=== PATIENT | female | born 1955 | race Hispanic/Latino ===

== ENCOUNTER 2018-10-28 04:15 | Emergency (ER) | payer OTHER, SELFPAY ==
[2018-10-28] MEDS ORDERED: Meclizine HCl 25 MG TAB ONE (05:00)
[2018-10-28 05:12] LABS: #Eosinphils 0.1 thou/uL (0.0-0.7); #Lymphocytes 2.7 thou/uL (1.20-3.40); #Monocytes 0.5 thou/uL (0.11-0.59); #Neutrophils 2.9 thou/uL (1.40-6.50); %Basophils 0.7 % (0.0-1.0); %Lymphocytes 42.8 % (21.0-51.0); %Monocytes 8.3 % (0.0-10.0); %Neutrophils 46.3 % (42.0-75.0); Hemoglobin 12.9 g/dL (12.0-16.0); Mean Corpuscular HGB CONC 34.6 g/dL (32.0-36.0); Mean Corpuscular Hemoglobin 29.7 pg (27.0-31.0); Mean Corpuscular Volume 85.9 fL (78.0-98.0); Mean Platelet Volume 7.5 fL (7.4-10.4); Platelet Count 259 thou/uL (130-400); RBC Distribution Width 11.5 % (11.5-14.5); Red Blood Cell (RBC) Count 4.36 mill/uL (4.20-5.40); White Blood Cell (WBC) Count 6.2 thou/uL (4.8-10.8)
[2018-10-28 05:24] LABS: ALT (SGPT) 19 U/L (8-55); AST (SGOT) 24 U/L (5-34); Alkaline Phosphatase 148 U/L (40-150); Anion Gap 12 mmol/L (10-20); BUN (Urea Nitrogen) 14 mg/dL (9.8-20.1); Bilirubin, Total 0.4 mg/dL (0.2-1.2); Calc. Creatinine Clearance 0 mL/min (70-130); Calcium 9.5 mg/dL (7.8-10.44); Carbon Dioxide 24 mmol/L (23-31); Chloride 107 mmol/L (98-107); Estimated GFR-MDRD 83; Globulin 3.5 g/dL (2.4-3.5); Glucose 110 mg/dL (80-115); Potassium 3.9 mmol/L (3.5-5.1); Protein, Total 7.5 g/dL (6.0-8.3); Sodium 139 mmol/L (136-145)
[2018-10-28] MEDS ORDERED: Diazepam 5 MG TAB ONE (05:54)
--- NOTE | 2018-10-28 08:16 | CT ---
PRELIMINARY REPORT/[facility]/EMERGENTY AFTER-HOURS PROCEDURE CT Head Without Contrast EXAM DATE/TIME: 10/28/2018 5:12 AM CLINICAL HISTORY: 63 years old, female; Signs and symptoms; Dizziness; Patient HX: Patient reports dizziness since yest erday with ear pain and congestion. TECHNIQUE: Axial computed tomography images of the head/brain without contrast. COMPARISON: No relevant prior studies available. FINDINGS: Brain: Normal. No hemorrhage. No significant white matter disease. No edema. Ventricles: Normal. No ventriculomegaly. Bones/joints: Normal. No acute fracture. Sinuses: Normal as visualized. No acute sinusitis. Mastoid air cells: Normal as visualized. No mastoid effusion. Soft tissues: Normal. IMPRESSION: No acute intracranial hemorrhage. Thank you for allowing us to participate in the care of your patient. Dictated and Authenticated by: Akira Yung MD 10/28/2018 6:35 AM Central Time ([place] & [place]) FINAL REPORT CT BRAIN WITHOUT CONTRAST: History: Dizziness. Comparison: CT brain 2004 FINDINGS: Findings and impression are concordant with the preliminary report. Code QA. POS: [facility]
== END 2018-10-28 06:43 | disposition home or self-care (01) ==
LOC: ERS 04:15
DX: H81.20 Vestibular neuronitis, unspecified ear (principal); I10 Essential (primary) hypertension
CPT/HCPCS: 36415; 70450; 80053; 84484; 85025; 93005

== ENCOUNTER 2018-11-25 08:48 | Emergency (ER) | payer OTHER ==
--- NOTE | 2018-11-25 10:52 | RAD ---
PORTABLE CHEST: Date: 11/25/18 HISTORY: Cough. FINDINGS: Heart size and mediastinum within normal limits. Lungs are clear of infiltrates. No bony findings. IMPRESSION: No active intrathoracic disease. POS: [facility]
== END 2018-11-25 10:58 | disposition home or self-care (01) ==
LOC: ERS 08:48
DX: J20.9 Acute bronchitis, unspecified (principal); R09.81 Nasal congestion; I10 Essential (primary) hypertension
CPT/HCPCS: 71045; 87804; 99283

== ENCOUNTER 2019-02-25 11:09 | Emergency (ER) | payer OTHER ==
[2019-02-25 12:02] LABS: Bilirubin Negative (Negative); Blood, Urine Small (Negative); Clarity CLOUDY (Clear); Glucose, Urine (Dipstick) Negative (Negative); Leukocyte Small (Negative); Nitrite Negative (Negative); Protein, Urine (Dipstick) 30 mg/dL (Neg-Trace); Specific Gravity, Urine 1.023 (1.002-1.036); Urobilinogen 0.2 mg/dL (0.2-1.0); pH, Urine 5.5 (5.0-9.0)
[2019-02-25 12:05] LABS: Bacteria/HPF None Seen HPF (None Seen)
== END 2019-02-25 12:26 | disposition home or self-care (01) ==
LOC: ERS 11:09
DX: B35.6 Tinea cruris (principal); N39.0 Urinary tract infection, site not specified; I10 Essential (primary) hypertension
CPT/HCPCS: 81003; 81015; 99283

== ENCOUNTER 2019-11-29 07:10 | Outpatient (CLI) | payer OTHER ==
--- NOTE | 2019-11-29 09:09 | ULT ---
US Abdominal History: Diffuse abdominal pain Comparison: Ultrasound abdomen 2004 Findings: Real-time grayscale and color evaluation of the abdomen was performed. The pancreas and aor ta and IVC are not well seen. There are multiple masses within the liver, largest measuring up to 3.2 cm in size. Some these masses are hyperechoic, and others are hyperechoic. Some these masses are subcapsular with sciatica small capsular bulge. These are not seen on the prior ultrasound from [address] abdomen an d pelvis exam 2013. The bladder is normal. No pericholecystic fluid. No cholelithiasis. Portal vein is patent with antegrade flow. The common bile duct measures up to 6 mm. Right kidney measures 10.5 x 5.4 x 5 cm without mass, hydronephrosis, or abnormal calcifications. The left kidney measures 9.4 x 5.55 4.6 cm without mass, hydronephrosis, or abnormal calcifications. The spleen measures 8.7 cm in length. Impression: Numerous abnormal hepatic masses concerning for metastatic disease. Dedicated liver protocol CT or MRI of the abdomen along with a pelvis examination recommended.
--- NOTE | 2019-11-29 09:56 | ULT ---
US Pelvic Transvag W Doppler History: Pelvic pain Comparison: None. Findings: Real-time grayscale, color, and spectral analysis of the pelvis was performed. Prior hysterectomy. Left ovary is normal without active vascular flow measuring 3.2 x 3.2 x 3.5 cm. 2 .1 cm cyst. There is a very large complex mass in the right ovary which measures up to 8.7 cm in size. There are solid and cystic components as well as papillary projections. There are also abnormal internal calcifications. Impression: Findings highly suspicious for right ovarian malignancy. Gynecologic consultation advised . Code CR: Dr. Hernandez office notified of findings via telephone at 9:54 AM.
--- NOTE | 2019-12-05 13:26 | MMO ---
Bilateral MAMMO Bilat Screen [facility]. CLINICAL HISTORY: Patient is 64 years old and is seen for screening. The patient has no family history of breast cancer. The patient has no personal history of cancer. VIEWS: The views performed were: bilateral craniocaudal with tomosynthesis; bilateral mediolateral oblique with tomosynthesis; and cleavage view. FILMS COMPARED: The present examination has been compared to a prior imaging study performed at [facility] on 09/06/2013. This study has been interpreted with the assistance of computer-aided detection. MAMMOGRAM FINDINGS: There are scattered fibroglandular densities. There are vascular calcifications seen in both breasts. There are no suspicious masses, suspicious calcifications, or new areas of architectural distortion. IMPRESSION: A ROUTINE FOLLOW-UP MAMMOGRAM IN 1 YEAR IS RECOMMENDED. THE RESULTS OF THIS EXAM WERE SENT TO THE PATIENT. ACR BI-RADS Category 2 - Benign finding MAMMOGRAPHY NOTE: 1. A negative mammogram report should not delay a biopsy if a dominant of clinically suspicious mass is present. 2. Approximately 10% to 15% of breast cancers are not detected by mammography. 3. Adenosis and dense breasts may obscure an underlying neoplasm. Reported by: CHARMAINE BELLE MD Electonically Signed: [id number]
== END 2019-11-29 07:11 | disposition home or self-care (01) ==
LOC: ULT 07:10 → BICULT 07:11
PROVIDERS: ATTEND Family Medicine
DX: Z12.31 Encounter for screening mammogram for malignant neoplasm of breast (principal); R10.84 Generalized abdominal pain; R16.0 Hepatomegaly, not elsewhere classified; R10.2 Pelvic and perineal pain
CPT/HCPCS: 76856; 77063; 77067; 93975

== ENCOUNTER 2019-12-09 09:48 | Outpatient (CLI) | payer OTHER ==
--- NOTE | 2019-12-09 13:34 | CT ---
CT Abdomen Pelvis W Con HISTORY: Malignant neoplasm of right ovary. COMPARISON: Pelvic ultrasound of 11/29/[address] examination of 12/31/2013. FINDINGS: The lung bases are clear of any infiltrative process. On the previous CT study small hepatic cyst were identified. There are now multiple liver masses seen in addition to the smaller cysts. The spleen and gallbladder appear unremarkable. The pancreas shows no evidence of ductal dilatation. Beginning along the inferior margin of the uncinate process o f the pancreas is a confluent soft tissue mass which appears to represent lymphadenopathy. It blends with the inferior margin of the uncinate process and fourth portion of the duodenum partially encircling the aorta inferior vena cava and right renal artery. It is difficult to measure but the upper portion of this is approximately 3.8 cm in size. This confluent soft tissue density extends to partially encircle the aorta and impresses on IVC to the level the aortic bifurcation. There is adenopathy within the pelvis with one of the larger nodes being a right common iliac node measuring 1 .5 cm. There is also moderate mesenteric lymphadenopathy. There is soft tissue nodularity seen within the omentum just beneath the anterior abdominal wall with a nodule measuring 12 mm in size. Th ere is also a larger nodule adjacent to this measuring 1.67 cm. Smaller nodes are also present no ascites. CT of pelvis performed with contrast enhancement: A midline complex mass which has cystic components and necrotic components is seen. It measures approximately 10 cm in maximum dimension. Enlarged iliac chain lymph nodes are also seen, these include common and internal iliac chain lymph nodes and external iliac chain nodes. No free fluid. Post hysterectomy changes. IMPRESSION: 1. Large midline pelvic mass possibly of ovarian origin. There is extensive adenopathy to include pel hailee periaortic, mesenteric and even some enlarged omental nodes. No ascites. There is also diffuse liver lesions which are probably related to metastatic disease. This is an unusual presentation for a ovarian malignancy but this would still be a possibility. Other entities such as lymphoma would be other considerations. Biopsy could be performed of one of the liver lesions for assessment.
== END 2019-12-09 09:49 | disposition home or self-care (01) ==
LOC: SCSCT 09:48
PROVIDERS: ATTEND Family Medicine
DX: C56.1 Malignant neoplasm of right ovary (principal); R19.00 Intra-abdominal and pelvic swelling, mass and lump, unspecified site
CPT/HCPCS: 74177; 82565

== ENCOUNTER 2020-02-01 13:56 | Emergency (ER) | payer MEDICARE, OTHER ==
--- NOTE | 2020-02-01 15:37 | RAD ---
FRONTAL AND LATERAL IMAGING RIGHT TIBIA AND FIBULA: 02/01/20 COMPARISON: None. HISTORY: Swelling. FINDINGS: No displaced fracture or evidence of dislocation. No radiopaque foreign body or subcutaneous gas. IMPRESSION: No acute osseous abnormality. POS: [facility]
--- NOTE | 2020-02-01 15:50 | ULT ---
RIGHT LOWER EXTREMITY VENOUS DOPPLER ULTRASOUND: 02/01/20. COMPARISON: None. HISTORY: Edema, pain, swelling, assess for DVT. TECHNIQUE: Multiplanar silverman scale sonographic imaging of the venous structures right lower extremity obtained wi th color flow and spectral analysis. FINDINGS: the common femoral vein is only partially compressible. The profunda femoral vein and the femoral vei n proximally are partially compressible. There is no compression of the mid and distal femoral vein a s well as the popliteal vein. Findings are consistent with extensive deep venous thrombosis of the ri ght lower extremity. Right greater saphenous vein appears patent. Posterior tibial vein is patent as well. IMPRESSION: Extensive deep venous thrombosis of the right lower extremity including right common femoral vein, pr ofunda femoral vein, femoral vein, and popliteal vein. POS: [facility]
== END 2020-02-01 15:53 | disposition home or self-care (01) ==
LOC: ERS 13:56
DX: I82.411 Acute embolism and thrombosis of right femoral vein (principal); I82.431 Acute embolism and thrombosis of right popliteal vein; I10 Essential (primary) hypertension; F32.9 Major depressive disorder, single episode, unspecified; Z85.43 Personal history of malignant neoplasm of ovary; Z79.899 Other long term (current) drug therapy

== ENCOUNTER 2020-02-08 15:33 | Emergency (ER) | payer MEDICARE ==
[2020-02-08 17:21] LABS: Mean Corpuscular HGB CONC 32.2 g/dL (32.0-36.0); Mean Corpuscular Hemoglobin 27.8 pg (27.0-31.0); Mean Corpuscular Volume 86.3 fL (78.0-98.0); Mean Platelet Volume 6.2 fL (7.4-10.4); Platelet Count 516 thou/uL (130-400); RBC Distribution Width 14.1 % (11.5-14.5); Red Blood Cell (RBC) Count 2.87 mill/uL (4.20-5.40)
[2020-02-08 17:27] LABS: INR-International Normal Ratio 1.8; PTT 43.5 SEC (22.9-36.1); Prothrombin Time 20.8 SEC (12.0-14.7)
[2020-02-08 17:35] LABS: Band 19 % (5-11); Lymphocytes 9 % (21-51); MDiff Complete? YES; Metamyelocyte 1 % (0-0); Monocytes 3 % (0-10); Neutrophil 68 % (42-75); Ovalocytes SLIGHT = 2-5 cells (100X) (0-1/hpf); Platelet Morphology Comment Appears Increased; Polychromasia MODERATE = 3-4 cells (100X) (0-2/hpf)
[2020-02-08 17:41] LABS: ALT (SGPT) 14 U/L (8-55); AST (SGOT) 30 U/L (5-34); Albumin 3.6 g/dL (3.4-4.8); Alkaline Phosphatase 277 U/L (40-110); Anion Gap 14 mmol/L (10-20); BUN (Urea Nitrogen) 6 mg/dL (9.8-20.1); Bilirubin, Total 0.2 mg/dL (0.2-1.2); Calc. Creatinine Clearance 0 mL/min (70-130); Calcium 9.6 mg/dL (7.8-10.44); Carbon Dioxide 26 mmol/L (23-31); Chloride 103 mmol/L (98-107); Estimated GFR-MDRD 75; Globulin 3.4 g/dL (2.4-3.5); Glucose 98 mg/dL (80-115); Potassium 5.4 mmol/L (3.5-5.1); Sodium 138 mmol/L (136-145)
--- NOTE | 2020-02-08 17:57 | ULT ---
ULTRASOUND RIGHT LOWER EXTREMITY VENOUS DOPPLER: 02/08/20 HISTORY: Pain. COMPARISON: Right lower extremity venous Doppler, 02/01/20. FINDINGS: Real time silverman scale, color Doppler and spectral analysis of the right lower extremity venous system was performed. A common femoral, femoral, proximal portions of the greater saphenous and deep femoral veins as well as the popliteal and posterior tibial veins were interrogated. There is nearly occlusive thrombus of the right common femoral, femoral, and popliteal veins. There i s some small volume flow within the posterior tibial veins. IMPRESSION: Similar appearance of the extensive deep venous thrombosis right lower extremity. POS: [facility]
== END 2020-02-08 18:55 | disposition home or self-care (01) ==
LOC: ERS 15:33
DX: I82.411 Acute embolism and thrombosis of right femoral vein (principal); I82.431 Acute embolism and thrombosis of right popliteal vein; I10 Essential (primary) hypertension; F32.9 Major depressive disorder, single episode, unspecified; Z79.899 Other long term (current) drug therapy
CPT/HCPCS: 36415; 80053; 85025; 85610; 85730

== ENCOUNTER 2020-04-21 22:13 | Emergency (ER) | payer OTHER | END 2020-04-21 23:48 | disposition home or self-care (01) | LOC: ERS 22:13 | DX: R50.9 Fever, unspecified (principal); R09.81 Nasal congestion; R05 Cough; Z20.828 Contact with and (suspected) exposure to other viral communicable diseases; I10 Essential (primary) hypertension; F32.9 Major depressive disorder, single episode, unspecified | CPT/HCPCS: 99283 ==

== ENCOUNTER 2020-04-24 19:55 | Observation (INO) | payer OTHER ==
[~2020-04-24 19:55] MED LIST: Iopamidol-370 76% 500 ML 1 ML ONE
[2020-04-24] MEDS ORDERED: Ibuprofen 200 MG TAB ONE (20:24)
[2020-04-24 20:32] LABS: #Lymphocytes 0.9 thou/uL (1.20-3.40); #Monocytes 0.2 thou/uL (0.11-0.59); #Neutrophils 9.5 thou/uL (1.40-6.50); %Basophils 0.2 % (0.0-1.0); %Lymphocytes 8.6 % (21.0-51.0); %Monocytes 1.5 % (0.0-10.0); %Neutrophils 89.7 % (42.0-75.0); Hemoglobin 9.7 g/dL (12.0-16.0); Mean Corpuscular HGB CONC 34.8 g/dL (32.0-36.0); Mean Corpuscular Hemoglobin 31.2 pg (27.0-31.0); Mean Corpuscular Volume 89.6 fL (78.0-98.0); Mean Platelet Volume 7.4 fL (7.4-10.4); Platelet Count 187 thou/uL (130-400); RBC Distribution Width 17.6 % (11.5-14.5); Red Blood Cell (RBC) Count 3.09 mill/uL (4.20-5.40); White Blood Cell (WBC) Count 10.5 thou/uL (4.8-10.8)
--- NOTE | 2020-04-24 20:45 | RAD ---
EXAM: CHEST ONE VIEW HISTORY: Fever. Covid positive. Generalized weakness. COMPARISON: 11/25/2018 FINDINGS: A right subclavian Mediport catheter is noted in place with tip overlying the expected location of th e SVC. Cardiac silhouette and pulmonary vasculature are within normal limits. Minimal linear densities are seen in the region of the lingula and left lung base which may represent mild atelectas is and/or scarring. Lungs are otherwise clear without consolidation or pleural fluid. No other interval change. IMPRESSION: Minimal atelectasis versus scarring left lung base. There is otherwise no acute cardiopulmonary proce ss.
[2020-04-24] MEDS ORDERED: Cefepime 2 GM VIAL ONE (20:47)
[2020-04-24 20:51] LABS: ALT (SGPT) 27 U/L (8-55); AST (SGOT) 35 U/L (5-34); Albumin 3.5 g/dL (3.4-4.8); Alkaline Phosphatase 266 U/L (40-110); Anion Gap 15 mmol/L (10-20); BUN (Urea Nitrogen) 12 mg/dL (9.8-20.1); Bilirubin, Total 0.3 mg/dL (0.2-1.2); Calc. Creatinine Clearance 0 mL/min (70-130); Calcium 8.7 mg/dL (7.8-10.44); Carbon Dioxide 22 mmol/L (23-31); Chloride 88 mmol/L (98-107); Estimated GFR-MDRD 60; Globulin 3.4 g/dL (2.4-3.5); Glucose 102 mg/dL (80-115); Potassium 3.4 mmol/L (3.5-5.1); Protein, Total 6.9 g/dL (6.0-8.3); Sodium 122 mmol/L (136-145)
[2020-04-24 22:08] LABS: Bacteria/HPF Rare-Few HPF (None Seen); Bilirubin Negative (Negative); Blood, Urine Negative (Negative); Clarity Clear (Clear); Glucose, Urine (Dipstick) Normal (Negative); Ketone, Urine Negative (Negative); Leukocyte Negative Leu/uL (Negative); Nitrite Negative (Negative); Protein, Urine (Dipstick) 30 mg/dL (Neg-Trace); RBC/HPF 0-3 HPF (0-3); Specific Gravity, Urine 1.015 (1.002-1.036); Urobilinogen Normal mg/dL (Less than 2); pH, Urine 5.5 (5.0-9.0)
[2020-04-24] MEDS ORDERED: Azithromycin 500 MG VIAL ONE (22:20)
--- NOTE | 2020-04-24 22:44 | PDOC.FPRHP ---
- History of Present Illness Chief Complaint: COVID-19 Positive, Worsening SOB History of Present Illness: This is a 64 yo female with a pmh of HTN and ovarian cancer who presents to the ER with a cc of worsening fever, chills, SOB, and body aches. She states that she was seen here on 04/21/20 for fever, symptom onset 04/19/20. At that time she had been tested for COVID-19 but did not have the results back and she was sent home as her condition did not warrant admission at that time. At this time, she has [facility]. She states she was feeling weak and dizzy tonight, prompting her admission. Other symptoms include nasal congestion, cough, and decreased taste as well as PO intake. I discussed her current condition with her daughter who confirmed her medication list and added that she has been eating poorly since her symptoms started. Her son-in-law tested positive for COVID-19 and is her sick contact. Last Chemo treatment ( treatment): April 15 taxol carboplatin, dostarlimab next on May 06 ED Course: Cefepime 2g Azithromycin 500mg IV Ibuprofen 600mg NS 1L - Allergies/Adverse Reactions Allergies Allergy/AdvReac Type Severity Reaction Status Date / Time codeine Allergy Verified 04/24/20 22:58 latex Allergy Verified 04/24/20 22:58 Penicillins Allergy Rash Verified 04/24/20 22:58 - Home Medications Medication Instructions Recorded Confirmed Type Apixaban [Eliquis] 5 mg PO BID 04/24/20 04/24/20 History Ferrous Sulfate 325 mg PO DAILY 04/24/20 04/25/20 History Lisinopril 10 mg PO DAILY 04/24/20 04/24/20 History Loratadine [Claritin] 10 mg PO DAILY 04/24/20 04/24/20 History Sertraline HCl 25 mg PO DAILY 04/24/20 04/24/20 History - History PMHx: HTN, Ovarian cancer, depression PSHx: Bilateral knee replacement, hysterectomy, partial tubal ligation FHx:Non contributory Social: Denies JESSICA - Review of Systems General: reports: fever/chills, weight/appetite/sleep changes, fatigue. denies : night sweats Eyes: denies: eye pain, vision changes ENT: reports: nasal congestion. denies: rhinorrhea Respiratory: reports: cough, shortness of breath, exercise intolerance. denies : congestion Cardiovascular: denies: chest pain, palpitation, edema, paroxysmal nocturnal dyspnea, orthopnea Gastrointestinal: denies: nausea, vomiting, diarrhea, constipation Genitourinary: denies: incontinence, dysuria Skin: denies: rashes, lesions Musculoskeletal: denies: pain, tenderness Neurological: denies: numbness, syncope Psychological: reports: depression. denies: anxiety - Vital signs BP: 124/63 HR: 82 RR: 20 Tmax: 99.7 Pox: 95% on ra Wt: 54 kg - Physical Exam Constitutional: NAD, awake, alert and oriented, well developed HEENT: PERRLA, EOMI, grossly normal vision, grossly normal hearing, MMM Neck: trachea midline, no JVD Heart: pulses present, other (Deferred cardio exam / covid, tele strip appears RRR) Lungs: no respiratory distress (calm respirations), no retractions Abdomen: soft, non-tender, no masses/distention Musculoskeletal: normal structure, normal tone, ROM grossly normal Neurological: CN II-XII intact, normal sensation Skin: good turgor, capillary refill <2 seconds Heme/Lymphatic: no unusual bruising or bleeding Psychiatric: normal mood and affect, good judgment and insight FMR H&P: Results - Labs Result Diagrams: 04/25/20 04:46 04/25/20 04:46 Lab results: WBC 10.5 thou/uL (4.8-10.8) 04/24/20 20:20 Hgb 9.7 g/dL (12.0-16.0) L 04/24/20 20:20 Hct 27.7 % (36.0-47.0) L 04/24/20 20:20 MCV 89.6 fL (78.0-98.0) 04/24/20 20:20 Plt Count 187 thou/uL (130-400) 04/24/20 20:20 Neutrophils % 89.7 % (42.0-75.0) H 04/24/20 20:20 Sodium 122 mmol/L (136-145) L 04/24/20 20:20 Potassium 3.4 mmol/L (3.5-5.1) L 04/24/20 20:20 Chloride 88 mmol/L (98-107) L 04/24/20 20:20 Carbon Dioxide 22 mmol/L (23-31) L 04/24/20 20:20 BUN 12 mg/dL (9.8-20.1) 04/24/20 20:20 Creatinine 0.93 mg/dL (0.6-1.1) 04/24/20 20:20 Glucose 102 mg/dL (80-115) 04/24/20 20:20 Lactic Acid 2.3 mmol/L (0.5-2.2) H 04/24/20 20:38 Calcium 8.7 mg/dL (7.8-10.44) 04/24/20 20:20 Total Bilirubin 0.3 mg/dL (0.2-1.2) 04/24/20 20:20 AST 35 U/L (5-34) H 04/24/20 20:20 ALT 27 U/L (8-55) 04/24/20 20:20 Alkaline Phosphatase 266 U/L (40-110) H 04/24/20 20:20 Serum Total Protein 6.9 g/dL (6.0-8.3) 04/24/20 20:20 Albumin 3.5 g/dL (3.4-4.8) 04/24/20 20:20 Urine Ketones Negative mg/dL (Negative) 04/24/20 21:54 Urine Blood Negative (Negative) 04/24/20 21:54 Urine Nitrite Negative (Negative) 04/24/20 21:54 Ur Leukocyte Esterase Negative Joey/uL (Negative) 04/24/20 21:54 Urine RBC 0-3 HPF (0-3) 04/24/20 21:54 Urine WBC 4-6 HPF (0-3) A 04/24/20 21:54 Ur Squamous Epith Cells 4-6 HPF (0-3) A 04/24/20 21:54 Urine Bacteria Rare-Few HPF (None Seen) 04/24/20 21:54 - Radiology Interpretation CT scan - chest Status: image reviewed by me, report reviewed by me (CTA: 1. Imaging findings most compatible with viral pneumonitis which can be seen with Covid 19. 2[address] CT evidence of pulmonary embolus. 3. Hilar and mediastinal lymphadenopathy which may be reactive in origin. 4. Hepatic metastatic lesions better visualized on prior CT abdomen. 4. Stranding in the aortocaval location incompletely evaluated on this examination. There is prominen t in confluent soft tissue density in the aortocaval region on the prior exam suggesting confluent lymphadenopathy which resulted in mass effect on the IVC and renal veins on the prior exam with possible occlusion of the IVC suggest on the prior exam.) Chest x-ray Status: report reviewed by me (Minimal atelectasis versus scarring left lung base. There is otherwise no acute cardiopulmonary process.) FMR H&P: A/P - Problem List (1) COVID-19 Current Visit: Yes Status: Acute Code(s): U07.1 - COVID-19 - Plan Sepsis 2/2 COVID-19 -Admit to [facility] -S/P Cefepime 2g, Azithromycin 500mg -Pending procal and Baseline Covid labs to direct further abx if needed -Tested positive at the [facility] -Symptom onset 04/19/20 -Repeating COVID test per facility policy Hyponatremia, asymptomatic -Na 122 -Likely hypovolemic hyponatremia -S/P 1 L -Will give another L of NS -Consider urine studies if not improved on AM labs Lactic acidosis -2.3, likely 2/2 above -Pending repeat Hypokalemia -Mild, pending Mag level -Will replace BID x6 doses Hypocloridemia -Pending repeat CMP Normocytic anemia with widened RDW -Likely 2/2 chemotherapy HTN -Continue home lisinopril Depression -Continue home sertraline 25mg Ovarian cancer, currently undergoing chemotherapy -Dr. Guevara is oncologist -Takes Eliquis 5mg BID for anticoagulation given hypercoagulabilty Code: Full Prophylaxis: Home Eliquis Family: Discussed case with Pt's Daughter Fluids: NS at 90ml/hr x1L Diet: Regular with Mighty shakes TID Disposition: DC in 1-2 days PCP: Dr. Hernandez Addendum - Attending - Attending Attestation Date/Time: 04/25/20 1214 I personally evaluated the patient and discussed the management with Dr. Muro I agree with the History, Examination, Assessment and Plan documented above with any addition or exceptions noted below. 64 yo female under treatment for metastatic ovarian CA. Patient with hypercoagulable state hx of DVT Left LE and on eliquis. Patient admitted throught ER with hypovolemic hyponatremia and found to be COVID 19 positive. CTA chest no PE c/w of viral pneumonitis. Patient currently sating well on Room air without oxygen requirement. She has immunocompromised state and empirically started on Antibiotic. Replace volume with NS and serial labs no current indication for remdesivir, further recommendation pending observation.
--- NOTE | 2020-04-24 23:18 | CT ---
CT ANGIOGRAM THORAX WITH IV CONTRAST AND 3-D RECONSTRUCTIONS CLINICAL INDICATION: Cough, congestion, and fever. Positive Covid COMPARISON: None FINDINGS: Pulmonary arteries: No filling defects are seen in the pulmonary arteries to suggest a pulmonary embo leonid. Aorta: Minimal vascular calcifications are seen. Thoracic aorta is normal in caliber without evidence of an aortic dissection. Lungs: There are scattered patchy groundglass density seen throughout the lungs more prominent periph erally and at each lung base with imaging characteristics most compatible with viral pneumonitis. No pleural effusion is seen Mediastinum: There is soft tissue density seen in each hilar region with mildly prominent subcarinal lymph node present suggesting lymphadenopathy likely reactive in origin. Thyroid gland: Grossly normal in appearance where visualized. Osseous structures: No acute process. Chest wall: Right subclavian Mediport catheter is noted in place with tip terminating in the distal S VC Upper abdomen: Multiple hypodense lesions are seen throughout the liver also seen on CT abdomen on compatible with metastatic disease. There is stranding seen in aortocaval region, and the patient was noted to have soft tissue density in the aortocaval location on the prior study which did result in mass effect on the IVC and possibly occlude the IVC on prior CT abdomen. IMPRESSION: 1. Imaging findings most compatible with viral pneumonitis which can be seen with Covid 19. 2. No CT evidence of pulmonary embolus. 3. Hilar and mediastinal lymphadenopathy which may be reactive in origin. 4. Hepatic metastatic lesions better visualized on prior CT abdomen. 4. Stranding in the aortocaval location incompletely evaluated on this examination. There is prominen t in confluent soft tissue density in the aortocaval region on the prior exam suggesting confluent lymphadenopathy which resulted in mass effect on the IVC and renal veins on the prior exam with possi ble occlusion of the IVC suggest on the prior exam.
[2020-04-25] MEDS ORDERED: Sodium Chloride 0.9% 1,000 ML IV SCH ×2 (01:15→01:16)
[2020-04-25] MEDS ORDERED: Ondansetron PF 4 MG/2 ML Vial IVP PRN (01:16)
[2020-04-25] MEDS ORDERED: Ondansetron ODT 4 MG TAB PO PRN (01:16)
[2020-04-25 01:53] LABS: INR-International Normal Ratio 1.1; PTT 51.8 sec (22.9-36.1); Prothrombin Time 14.5 sec (12.0-14.7)
[2020-04-25 02:10] LABS: CRP (Inflammatory) 15.29 mg/dL (= or < 0.5); Magnesium 1.1 mg/dL (1.6-2.6)
[2020-04-25 02:25] VITALS: BMI 25.6
[2020-04-25] MEDS ORDERED: Magnesium 2 GM/50 ML 2 GM in Premix Bag 1 BAG IVPB SCH (03:30)
[2020-04-25] MEDS ORDERED: cefTRIAXone\\ROCEPHIN 1 GM in Sodium Chloride 0.9% 100 ML IVPB SCH (05:45)
[2020-04-25 05:49] LABS: ALT (SGPT) 20 U/L (8-55); AST (SGOT) 28 U/L (5-34); Albumin 2.8 g/dL (3.4-4.8); Alkaline Phosphatase 197 U/L (40-110); Anion Gap 9 mmol/L (10-20); BUN (Urea Nitrogen) 13 mg/dL (9.8-20.1); Bilirubin, Total 0.3 mg/dL (0.2-1.2); Calc. Creatinine Clearance 58 mL/min (70-130); Calcium 7.7 mg/dL (7.8-10.44); Carbon Dioxide 23 mmol/L (23-31); Chloride 94 mmol/L (98-107); Estimated GFR-MDRD 65; Globulin 2.8 g/dL (2.4-3.5); Glucose 80 mg/dL (80-115); Potassium 3.6 mmol/L (3.5-5.1); Protein, Total 5.6 g/dL (6.0-8.3); Sodium 122 mmol/L (136-145)
[2020-04-25 06:22] LABS: Band 31 % (5-11); Hemoglobin 8.8 g/dL (12.0-16.0); Lymphocytes 16 % (21-51); MDiff Complete? YES; Mean Corpuscular HGB CONC 34.9 g/dL (32.0-36.0); Mean Corpuscular Hemoglobin 31.5 pg (27.0-31.0); Mean Corpuscular Volume 90.2 fL (78.0-98.0); Mean Platelet Volume 7.6 fL (7.4-10.4); Monocytes 2 % (0-10); Neutrophil 51 % (42-75); Platelet Count 168 thou/uL (130-400); Platelet Morphology Comment Appears Adequate; RBC Distribution Width 17.8 % (11.5-14.5); Red Blood Cell (RBC) Count 2.78 mill/uL (4.20-5.40); White Blood Cell (WBC) Count 8.1 thou/uL (4.8-10.8)
[2020-04-25] MEDS: Azithromycin 250 MG TAB PO SCH (08:15)
[2020-04-25] MEDS: Ferrous Sulfate 325 MG TAB PO SCH ×2 (08:15→17:59)
[2020-04-25] MEDS: Apixaban 5 MG TAB PO SCH ×2 (08:15→19:23)
[2020-04-25] MEDS: Potassium Chloride 20 MEQ TAB PO SCH ×2 (08:15→18:00)
[2020-04-25] MEDS: Loratadine 10 MG TAB PO SCH (08:15)
[2020-04-25 09:05] LABS: Phosphorus 3.2 mg/dL (2.3-4.7)
[2020-04-25] MEDS: Sodium Chloride 0.9% 1,000 ML IV SCH ×2 (09:42→14:15)
--- NOTE | 2020-04-25 11:24 | PDOC.BPN ---
<Marissa Stevens - Last Filed: 04/25/20 11:14> - Brief Progress Note Subjective: Patient seen by myself and Dr. Roach this morning. She is resting comfortably in bed. No noted distress. She reports feeling much better today without any issues. She has not required any supplemental O2. She denies any NVD , dizziness, abd pain, chest pain. Endorses cough. Denies fever. Objective: 97.8F,69, 16, 95% on RA, 113/57 PE: General: NAD, resting comfortably Cardio: RRR, no murmurs, rubs, gallops Resp: CTAB, no wheezes rales or rhonchi Abd: soft, non distended MSK: FROM Psych: axox 3 A&P: Sepsis 2/2 COVID-19 - Sepsis has now resolved - abx discontinued due to neg procal. Does not qualify for steroids, plasma or remdesivir. Unlikley to be a bacterial source. - Will continue to monitor O2 sats. She has been satting well on RA, sitting and ambulatory. - Give supplemental O2 if needed - Droplet precautions Hyponatremia - likely pre-renal, hypovolemia - Na 122, will give another liter, recheck BMP at 12. Hypokalemia, resolved HTN - held lisinopril as patient's BPs were lower. Will continue to monitor and re- start if needed. Ovarian Cancer with liver/lung mets - stable, due to get next chemo May 06 - Palliative care consulted, advanced directives and goals of care. Appreciate help with this. Case discussed with Dr. Roach <Bernard Roach - Last Filed: 04/25/20 13:58> Addendum - Attending - Attending Attestation Date/Time: 04/25/20 1233 I personally evaluated the patient and discussed the management with Dr. Stevens I agree with the History, Examination, Assessment and Plan documented above with any addition or exceptions noted below. Continue to trend electrolytes patient asymptomatic and feeling better since admission and IV fluid increase activities as tolerated.
[2020-04-25 13:57] LABS: Anion Gap 15 mmol/L (10-20); BUN (Urea Nitrogen) 10 mg/dL (9.8-20.1); Calc. Creatinine Clearance 61 mL/min (70-130); Calcium 8.6 mg/dL (7.8-10.44); Carbon Dioxide 20 mmol/L (23-31); Chloride 99 mmol/L (98-107); Estimated GFR-MDRD 70; Glucose 104 mg/dL (80-115); Potassium 3.8 mmol/L (3.5-5.1); Sodium 130 mmol/L (136-145)
[2020-04-25] MEDS: Acetaminophen 325 MG TAB PO PRN ×2 (15:02→19:55)
[2020-04-26] MEDS: Acetaminophen 325 MG TAB PO PRN (04:31)
[2020-04-26 05:04] LABS: ALT (SGPT) 21 U/L (8-55); AST (SGOT) 32 U/L (5-34); Albumin 3.1 g/dL (3.4-4.8); Alkaline Phosphatase 243 U/L (40-110); Anion Gap 10 mmol/L (10-20); BUN (Urea Nitrogen) 8 mg/dL (9.8-20.1); Bilirubin, Total 0.2 mg/dL (0.2-1.2); Calc. Creatinine Clearance 63 mL/min (70-130); Calcium 8.1 mg/dL (7.8-10.44); Carbon Dioxide 24 mmol/L (23-31); Chloride 98 mmol/L (98-107); Estimated GFR-MDRD 72; Globulin 3.2 g/dL (2.4-3.5); Glucose 75 mg/dL (80-115); Potassium 3.9 mmol/L (3.5-5.1); Protein, Total 6.3 g/dL (6.0-8.3); Sodium 128 mmol/L (136-145)
[2020-04-26 06:09] LABS: #Lymphocytes 0.9 thou/uL (1.20-3.40); #Monocytes 0.1 thou/uL (0.11-0.59); #Neutrophils 7.9 thou/uL (1.40-6.50); %Basophils 0.1 % (0.0-1.0); %Lymphocytes 9.6 % (21.0-51.0); %Neutrophils 89.3 % (42.0-75.0); Mean Corpuscular HGB CONC 35.3 g/dL (32.0-36.0); Mean Corpuscular Hemoglobin 31.9 pg (27.0-31.0); Mean Corpuscular Volume 90.4 fL (78.0-98.0); Mean Platelet Volume 7.9 fL (7.4-10.4); Platelet Count 161 thou/uL (130-400); RBC Distribution Width 18.1 % (11.5-14.5); Red Blood Cell (RBC) Count 2.82 mill/uL (4.20-5.40); White Blood Cell (WBC) Count 8.8 thou/uL (4.8-10.8)
--- NOTE | 2020-04-26 06:09 | PDOC.FM ---
- Subjective Subjective: Overnight, patient fevered to 102.8 and given tylenol. Patient resting comfortably in bed. Feeling better. Denies any respiratory difficulty. Denies feeling feverish at this time. Feels well enough to go home. - Objective MAR Reviewed: Yes Vital Signs & Weight: Vital Signs (12 hours) Temp Pulse Resp BP BP BP BP 04/26/20 04:31 102.8 F H 101 H 31 H 04/26/20 02:40 04/26/20 00:18 100.2 F H 91 24 H 137/61 04/26/20 00:13 04/25/20 19:27 100.3 F H 101 H 25 H 113/58 L 109/58 L 115/56 L Pulse Ox 04/26/20 04:31 98 04/26/20 02:40 97 04/26/20 00:18 99 04/26/20 00:13 97 04/25/20 19:27 97 Weight Weight 57.516 kg I&O: 04/24/20 04/25/20 04/26/20 06:59 06:59 06:59 Intake Total 458 2059 Output Total 200 1150 Balance 258 909 Result Diagrams: 04/26/20 04:13 04/26/20 04:13 Phys Exam - Physical Examination Constitutional: NAD HEENT: PERRLA, moist MMs, sclera anicteric Neck: supple, full ROM Respiratory: no wheezing, no rales, no rhonchi, clear to auscultation bilateral Cardiovascular: RRR, no significant murmur, no rub Gastrointestinal: soft, non-tender, no distention, positive bowel sounds Musculoskeletal: no edema Neurological: non-focal, moves all 4 limbs Psychiatric: normal affect, A&O x 3 Skin: no rash, normal turgor, cap refill <2 seconds Dx/Plan (1) Hyponatremia Code(s): E87.1 - HYPO-OSMOLALITY AND HYPONATREMIA Status: Acute (2) Ovarian cancer Status: Acute (3) Hypertension Code(s): I10 - ESSENTIAL (PRIMARY) HYPERTENSION Status: Acute (4) COVID-19 Code(s): U07.1 - COVID-19 Status: Acute - Plan Plan: Sepsis 2/2 COVID-19 Fever overnight on 04/26 up to 102.8, given tylenol. CXR showing some atelectasis and CT showing viral pneumonitis from COVID 19 on admission. - Will continue azithro and rocephin due to procal 1.19. Possibly falsy elevated due to cancer. Will continue abx. Does not yet qualify for plasma or remdesivir. If worsening SOB can consider starting dexamethasone, but concern for immunosuppression with cancer. - Blood cx 1/2 coag neg staph - likely contaminant. Ur cx NGTD. - Will continue to monitor O2 sats. She has been satting well on RA, sitting and ambulatory. - Droplet precautions Hyponatremia - likely pre-renal, hypovolemia - Na went up to 130 and now 128. Will continue to monitor. Encourage PO hydration. Hypokalemia, resolved HTN - held lisinopril as patient's BPs were lower. Will continue to monitor and re- start if needed. Ovarian Cancer with liver/lung mets CT showing hilar/mediastinal lymphadenopathy, hepatic metastatic lesions, stranding in the aortocaval location. - Stable, due to get next chemo May 06 - Palliative care consulted, advanced directives and goals of care. Appreciate help with this. Dispo: Discharge today Diet: Reg Ppx: Eliquis Code: FULL Case discussed with Dr. Roach Addendum - Attending - Attending Attestation Date/Time: 04/26/20 4528 I personally evaluated the patient and discussed the management with Dr. Stevens I agree with the History, Examination, Assessment and Plan documented above with any addition or exceptions noted below.atient continue to feel well no oxygen requirement. Discussed potential for respiratory decline and need for oxygen and further treatment. Patient stable for d/c home with quarantine and return precautions endorsed. Patient will need to continue monitor hyponatremia as outpatient and fever management.
[2020-04-26] MEDS ORDERED: cefTRIAXone\\ROCEPHIN 1 GM in Sodium Chloride 0.9% 100 ML IVPB SCH (08:00)
[2020-04-26] MEDS: Loratadine 10 MG TAB PO SCH (08:22)
[2020-04-26] MEDS: Apixaban 5 MG TAB PO SCH (08:22)
[2020-04-26] MEDS: Potassium Chloride 20 MEQ TAB PO SCH (08:22)
[2020-04-26] MEDS: Azithromycin 250 MG TAB PO SCH (08:22)
[2020-04-26] MEDS: Ferrous Sulfate 325 MG TAB PO SCH (08:22)
[2020-04-26 10:22] VITALS: BP 120/58; TEMP 99.9
--- NOTE | 2020-04-28 11:46 | DIS ---
DATE OF ADMISSION: 04/24/2020 DATE OF DISCHARGE: 04/26/2020 ADMITTING ATTENDING: Bernard Roach MD DISCHARGE ATTENDING: Bernard Roach MD CONSULTS: None. PROCEDURES: None. PRIMARY DIAGNOSES: 1. Sepsis, secondary to COVID-19 pneumonia. 2. Hyponatremia. 3. Hypokalemia. SECONDARY DIAGNOSES: 1. Hypertension. 2. Ovarian cancer with metastasis to the lung and liver. DISCHARGE MEDICATIONS: 1. Tylenol regular strength 650 mg oral every 4 hours as needed. 2. Azithromycin 250 mg oral daily for a 5-day course. 3. Claritin 10 mg oral daily. 4. Sertraline 25 mg oral daily. 5. Lisinopril 10 mg oral daily. 6. Eliquis 5 mg oral twice daily. 7. Ferrous sulfate 325 mg oral daily. DISCONTINUED MEDICATIONS: None. HISTORY OF PRESENT ILLNESS/HOSPITAL COURSE: This is a 64-year-old female with past medical history of hypertension and metastatic ovarian cancer, presented to the ER with a history of worsening fever, chills, shortness of breath, and body aches with a positive COVID contact exposure. She was seen in the ER on 04/21/2020 for fever, but was not admitted at that time. She first started with symptoms on 04/19/2020. The patient returned due to worsening shortness of breath and fever that would not go down with Tylenol. In the ER, the patient was given cefepime, azithromycin, ibuprofen, and normal saline. She was admitted to telemetry for further management. Of note, the patient found to have a sodium of 122. Other significant vitals included elevated D-dimer, ferritin, LDH, and CRP. The patient was continued on antibiotics throughout her hospital stay as her procalcitonin was initially 1.19 and trended up to 1.42. She was not on any steroids during her stay as she was not requiring any supplemental oxygen. The patient was observed for a day as her onset of symptoms were 04/19 and we wanted to keep her through the peak of her symptoms through day 7 or 8. We did advise the patient that when she was discharged, she may have worsening of symptoms and can return if she develops worsening shortness of breath and persistent fever. Throughout her stay, the patient did not require any supplemental oxygen. She was stable, ambulating, and throughout the night, not requiring any oxygen. The patient tolerated p.o. well. Discussed quarantine precautions upon discharge. The patient in agreement with plan. DISCHARGE INSTRUCTIONS: 1. Location: Home. 2. Activity: Ad iza. 3. Diet: Regular. 4. Followup: Follow up with PCP, Dr. Hernandez within 1 week. Job ID: [id number]
== END 2020-04-26 13:00 | disposition home or self-care (01) ==
LOC: ERS 19:55 → 2SW 21:56
PROVIDERS: ADMIT Family Medicine; ATTEND Family Medicine
DX: A41.89 Other specified sepsis (principal); U07.1 COVID-19; J12.89 Other viral pneumonia; E87.1 Hypo-osmolality and hyponatremia; E87.6 Hypokalemia; I10 Essential (primary) hypertension; C56.9 Malignant neoplasm of unspecified ovary; C78.7 Secondary malignant neoplasm of liver and intrahepatic bile duct; C78.00 Secondary malignant neoplasm of unspecified lung; F32.9 Major depressive disorder, single episode, unspecified; Z88.0 Allergy status to penicillin; Z88.5 Allergy status to narcotic agent; Z91.040 Latex allergy status; Z79.899 Other long term (current) drug therapy
CPT/HCPCS: 36415; 71045; 71275; 80053; 81003; 81015; 82570; 82728; 83605; 83615; 83735; 83930; 83935; 84100; 84145; 84300; 85025; 85379; 85610; 85730; 86140; 87040; 87086; 87149; 96361; 96365; 96366; 96367; G0378; J0456; J0692; J0696; J3475; J3490; Q9967

== ENCOUNTER 2020-04-28 05:20 | Inpatient (IN) | payer MEDICARE, OTHER ==
[2020-04-28 06:29] LABS: Base Excess-Venous -3.9 mmol/L (-2.0 to 3.0); Bicarbonate (HCO3v) 20.1 mmol/L (22.0-28.0); CO2 Tension (PvCO2) 31.4 mmHg (40.0-50.0); Calcium, Ionized 0.97 mmol/L (See Comments:); Chloride 103 mmol/L (98-107); Hemoglobin - Calc 8.2 g/dL (12.0-16.0); Potassium 2.9 mmol/L (3.5-5.1); Sodium 136 mmol/L (138-145); T. Carbon Dioxide 21.1 mmol/L (22.0-28.0); vO2 Saturation-calc 70.3 % (60.0-85.0)
[2020-04-28 06:41] LABS: #Lymphocytes 0.6 thou/uL (1.20-3.40); #Monocytes 0.1 thou/uL (0.11-0.59); #Neutrophils 5.4 thou/uL (1.40-6.50); %Basophils 0.1 % (0.0-1.0); %Eosinophils 0.1 % (0.0-10.0); %Lymphocytes 10.5 % (21.0-51.0); %Monocytes 1.6 % (0.0-10.0); %Neutrophils 87.8 % (42.0-75.0); Hemoglobin 9.3 g/dL (12.0-16.0); Mean Corpuscular HGB CONC 35.7 g/dL (32.0-36.0); Mean Corpuscular Hemoglobin 32.2 pg (27.0-31.0); Mean Corpuscular Volume 90.3 fL (78.0-98.0); Mean Platelet Volume 7.4 fL (7.4-10.4); Platelet Count 123 thou/uL (130-400); Red Blood Cell (RBC) Count 2.88 mill/uL (4.20-5.40); White Blood Cell (WBC) Count 6.1 thou/uL (4.8-10.8)
[2020-04-28 06:56] LABS: ALT (SGPT) 17 U/L (8-55); AST (SGOT) 35 U/L (5-34); Albumin 3.4 g/dL (3.4-4.8); Alkaline Phosphatase 235 U/L (40-110); Anion Gap 12 mmol/L (10-20); BUN (Urea Nitrogen) 6 mg/dL (9.8-20.1); Bilirubin, Total 0.4 mg/dL (0.2-1.2); Calc. Creatinine Clearance 0 mL/min (70-130); Calcium 8.5 mg/dL (7.8-10.44); Carbon Dioxide 22 mmol/L (23-31); Chloride 96 mmol/L (98-107); Estimated GFR-MDRD 75; Globulin 3.6 g/dL (2.4-3.5); Glucose 79 mg/dL (80-115); Potassium 3.5 mmol/L (3.5-5.1); Sodium 126 mmol/L (136-145)
--- NOTE | 2020-04-28 07:42 | RAD ---
Chest one view HISTORY: Dyspnea. COVID positive. COMPARISON: 04/24/2020. FINDINGS: Cardiac silhouette is magnified by projection. Pulmonary vasculature is upper limits of nor mal and accentuated by shallow inspiration. Mediastinum is midline with a right subclavian Port-A-Cath. Subtle hazy predominantly peripheral parenchymal opacity at each lower lobe has progressed slightly, with some obscuration of the right hemidiaphragm. No lobar consolidation or evidence of pneumothorax. IMPRESSION : Mild patchy bilateral lower lobe infiltrates. Clinical correlation regarding other signs and symptoms of multifocal viral pneumonitis is required.
[2020-04-28 08:27] LABS: Bacteria/HPF None Seen HPF (None Seen); Bilirubin Negative (Negative); Blood, Urine Negative (Negative); Clarity Clear (Clear); Glucose, Urine (Dipstick) Normal (Negative); Ketone, Urine Negative (Negative); Leukocyte Negative Leu/uL (Negative); Nitrite Negative (Negative); Protein, Urine (Dipstick) 70 mg/dL (Neg-Trace); RBC/HPF 0-3 HPF (0-3); Specific Gravity, Urine 1.016 (1.002-1.036); Squamous Epithelial 0-3 HPF (0-3); Urobilinogen Normal mg/dL (Less than 2)
--- NOTE | 2020-04-28 08:39 | PDOC.FPRHP ---
- History of Present Illness Chief Complaint: SOB History of Present Illness: Navya Tinoco is a 64 year old female with a history of HTN and ovarian cancer with mets to liver/lung and chemo (most recent tx 04/15/20) who presents for SOB and cough x 9 days that worsened gradually 1 day ago. She tested COVID+ 6 days ago. She reports generalized weakness, clear sputum with blood present, congestion, and fever of 101F at home. She denies headache, chest pain, abdominal pain, nausea and vomiting. She is unaware of sick exposures. No recent travel. The patient was recently discharged on 04/24 for sepsis 2/2 COVID. During admission, CT revealed viral pneumonitis. CXT showed atelectasis. Patient was placed on azithromycin and rocephin. Palliative met with the patient to discuss her diagnosis and goals of care at that time. ED Course: Patient noted to be in NAD. Ox sat 85%, improved to 100% on 2L. Vitals: Temp 101.5, BP 131/81, HR 92, Resp 28. Map 95. Acetaminophen 1g administered. - Allergies/Adverse Reactions Allergies Allergy/AdvReac Type Severity Reaction Status Date / Time codeine Allergy Verified 04/28/20 11:14 latex Allergy Verified 04/28/20 11:14 Penicillins Allergy Rash Verified 04/28/20 11:14 - Home Medications Medication Instructions Recorded Confirmed Type Apixaban [Eliquis] 5 mg PO BID 04/24/20 04/28/20 History Ferrous Sulfate 325 mg PO DAILY 04/24/20 04/28/20 History Lisinopril 10 mg PO DAILY 04/24/20 04/28/20 History Loratadine [Claritin] 10 mg PO DAILY 04/24/20 04/28/20 History Sertraline HCl 25 mg PO DAILY 04/24/20 04/28/20 History Acetaminophen [Tylenol Regular 650 mg PO Q4H PRN tab 04/25/20 04/28/20 Rx Strength] Azithromycin [Zithromax] 250 mg PO DAILY #4 tab 04/25/20 04/28/20 Rx - History PMHx: HTN, ovarian cancer, depression PSHx: Knee surgery bilaterally, partial hysterectomy, tubal ligation FHx: Non-contributory Social: Denies alcohol or drug use. Never smoker. Lives at home with family. - Review of Systems General: reports: fever/chills Eyes: denies: eye pain, vision changes ENT: reports: nasal congestion. denies: rhinorrhea Respiratory: reports: cough, congestion, shortness of breath Cardiovascular: denies: chest pain, palpitation, edema Gastrointestinal: denies: nausea, vomiting, abdominal pain Genitourinary: denies: dysuria, polyuria Skin: denies: rashes, lesions Musculoskeletal: denies: pain, tenderness Neurological: reports: weakness (generalized). denies: numbness Psychological: denies: anxiety, depression - Vital signs BP: [131/81] HR: [92] RR: [28] Tmax: [101.5F] Pox: [100]% on [2] Wt: [54.43kg ] - Physical Exam Constitutional: NAD, awake, alert and oriented HEENT: normocephalic and atraumatic, PERRLA Neck: supple, trachea midline Chest: no-tender to palpation, no lesions Heart: RRR, normal S1/S2, pulses present, no edema Lungs: CTAB, no respiratory distress, good air movement Abdomen: soft, non-tender, bowel sounds present Musculoskeletal: normal structure, ROM grossly normal Neurological: no focal deficit, CN II-XII intact Skin: no rash/lesions, no jaundice Heme/Lymphatic: no purpura, no petechia Psychiatric: normal mood and affect, good judgment and insight FMR H&P: Results - Labs Result Diagrams: 04/28/20 06:28 04/28/20 06:28 Lab results: WBC 6.1 thou/uL (4.8-10.8) 04/28/20 06:28 Hgb 9.3 g/dL (12.0-16.0) L 04/28/20 06:28 Hct 26.0 % (36.0-47.0) L 04/28/20 06:28 MCV 90.3 fL (78.0-98.0) 04/28/20 06:28 Plt Count 123 thou/uL (130-400) L 04/28/20 06:28 Neutrophils % 87.8 % (42.0-75.0) H 04/28/20 06:28 VBG pCO2 31.4 mmHg (40.0-50.0) L 04/28/20 06:28 VBG pO2 35.7 mmHg (35.0-45.0) 04/28/20 06:28 Sodium 126 mmol/L (136-145) L 04/28/20 06:28 Potassium 3.5 mmol/L (3.5-5.1) 04/28/20 06:28 Chloride 96 mmol/L (98-107) L 04/28/20 06:28 Carbon Dioxide 22 mmol/L (23-31) L 04/28/20 06:28 BUN 6 mg/dL (9.8-20.1) L 04/28/20 06:28 Creatinine 0.77 mg/dL (0.6-1.1) 04/28/20 06:28 Glucose 79 mg/dL (80-115) L 04/28/20 06:28 Calcium 8.5 mg/dL (7.8-10.44) 04/28/20 06:28 Total Bilirubin 0.4 mg/dL (0.2-1.2) 04/28/20 06:28 AST 35 U/L (5-34) H 04/28/20 06:28 ALT 17 U/L (8-55) 04/28/20 06:28 Alkaline Phosphatase 235 U/L (40-110) H 04/28/20 06:28 Serum Total Protein 7.0 g/dL (6.0-8.3) 04/28/20 06:28 Albumin 3.4 g/dL (3.4-4.8) 04/28/20 06:28 Urine Ketones Negative mg/dL (Negative) 04/28/20 08:00 Urine Blood Negative (Negative) 04/28/20 08:00 Urine Nitrite Negative (Negative) 04/28/20 08:00 Ur Leukocyte Esterase Negative Joey/uL (Negative) 04/28/20 08:00 Urine RBC 0-3 HPF (0-3) 04/28/20 08:00 Urine WBC 4-6 HPF (0-3) A 04/28/20 08:00 Ur Squamous Epith Cells 0-3 HPF (0-3) 04/28/20 08:00 Urine Bacteria None Seen HPF (None Seen) 04/28/20 08:00 - EKG Interpretation EKG: No acute findings. HR 91. FMR H&P: A/P - Problem List (1) Hypokalemia Current Visit: Yes Status: Acute Code(s): E87.6 - HYPOKALEMIA (2) Anemia Current Visit: Yes Status: Acute Code(s): D64.9 - ANEMIA, UNSPECIFIED (3) Depression Current Visit: Yes Status: Acute Code(s): F32.9 - MAJOR DEPRESSIVE DISORDER , SINGLE EPISODE, UNSPECIFIED (4) COVID-19 Current Visit: No Status: Acute Code(s): U07.1 - COVID-19 (5) Hypertension Current Visit: No Status: Acute Code(s): I10 - ESSENTIAL (PRIMARY) HYPERTENSION (6) Hyponatremia Current Visit: No Status: Acute Code(s): E87.1 - HYPO-OSMOLALITY AND HYPONATREMIA (7) Ovarian cancer Current Visit: No Status: Acute - Plan 1. Acute hypoxic respiratory failure 2/2 COVID pneumonia Patient denies history of respiratory problems or use of O2 at baseline. She was recently discharged on 04/26 with sepsis 2/2 COVID pneumonitis. O2 sats improved from 85% RA to 100% 2L in the ED. On VBD: pH 7.4, CO2 21.1, O2 70.3, Bicarb 20.1. D-dimer 1.08. CXR showed bilateral lower lobe infiltrates. Patient will be admitted to tele inpatient. -F/u ABG -F/u CRP -F/u ferritin -F/u LDH -D-dimer daily -Pro-leyla daily -F/u CTA results -Decadron 4mg BID -Azithromycin 250mg IV daily -Acetaminophen 650mg Q8H PRN for fever -Droplet and airborne precautions 2. Hypokalemia K was 2.9 on VBG. -K 40 mEq PO -Repeat BMP 2 hours after K intake 3. Hyponatremia Likely hypovolemic related to poor oral intake. Patient was hyponatremic during recent admission. Na 126 in ED. -Encourage PO intake -Daily BMP 4. Ovarian cancer with mets Patient followed by oncology in the [place]. Most recent chemotherapy was on . -Next chemotherapy is 05/06 5. HTN BP stable. -Continue lisinopril 10mg daily 6. Anemia Hgb was noted to be in the 9s during recent admission. Most recent Hgb is 9.3. -Continue iron supplement 7. Depression -Continue sertraline 25mg daily PCP: Mary Code: Full PPx: Eliquis Dispo: Home pending oxygen requirements return to baseline FMR H&P: Upper Level - Plan Date/Time: 04/28/20 0836 I, Paddy Clemens DO, have evaluated this patient and agree with findings/plan as outlined by internal combustion engine assembler resident. Pertinent changes/additions are listed here. 64 yo F presents w/ worsening sob She is currently undergoing chemotherapy for ovarian cancer. She recently tested positive for COVID19 at the [facility], symptom onset was 04/19. She was admitted to the hospital over the weekend for similar symptoms. DCd on azithromycin on Monday, she began feeling more SOB today. Of note she did not have an O2 requirement over the weekend. In the ED she was febrile, and dropped to 88% on RA, was given Tylenol and placed on 2L with sats improving to 96% on my exam, she was CTAB, RRR, abd NTTP, moves all 4 extremities, no edema. Ekg wnl , cxr w/ linear interstitial opacities c/w multifocal viral pna. CTA neg for pe. Ddimer was elevated, trop wnl. Admit to medical for acute hypoxic respiratory failure 2/2 covid19 pna. Will start decadron, continue azithromycin. Covid19 routine labs pending. Continue home htn meds. Monitor hb/ K levels as they have been low in the past. ELOS>48hrs. Addendum - Attending - Attending Attestation Date/Time: 04/28/20 1300 I personally evaluated the patient and discussed the management with Dr. Modi/Sarath. I agree with the History, Examination, Assessment and Plan documented above with any addition or exceptions noted below. Patient here for readmission 2/2 COVID pneumonia. Patient admitted over the weekend but never developed hypoxia. She was discharged but developed increasing BARNARD yesterday so came back to ED. She was found to be hypoxic on room air that improved with NC. She is now satting 95% on 1L. She is high risk for complications due to her active malignancy and chemotherapy. We will see if she is candidate for plasma and Remdesivir but unsure given her history. Continue the other usual therapies for COVID. Monitor respiratory status closely. She had hypovolemic hyponatremia at last admission and appears similar at this time. Will give some gentle fluids and encourage hydration.
[2020-04-28] MEDS ORDERED: Acetaminophen 500 MG TAB ONE (08:52)
[2020-04-28] MEDS ORDERED: Acetaminophen 325 MG TAB PO PRN (09:12)
[2020-04-28] MEDS ORDERED: Acetaminophen 650 MG Suppository PR PRN (09:12)
[2020-04-28] MEDS ORDERED: Ondansetron PF 4 MG/2 ML Vial IVP PRN (09:12)
[2020-04-28] MEDS ORDERED: Ondansetron ODT 4 MG TAB PO PRN (09:12)
--- NOTE | 2020-04-28 09:27 | CT ---
CT PULMONARY ANGIOGRAM WITH IV CONTRAST AND 3D POSTPROCESSING: Date: 04/28/2020 HISTORY: Dyspnea, high D-Dimer, COVID-positive. Malignant neoplasm of right ovary. COMPARISON: 04/24/2020. FINDINGS: There is good contrast opacification of the pulmonary arterial vasculature without filling defects to suggest pulmonary embolism. The thoracic aorta is well opacified without aneurysm or dissection. No pleural or pericardial effusions are seen. The scattered patchy peripheral ground-glass opacities seen throughout the lungs bilaterally demonstr ate interval worsening. Prominent mediastinal and hilar lymph nodes, liver lesions, and periaortic/aortocaval lymphadenopathy in the abdomen are again seen. There are mild degenerative changes in the spine. IMPRESSION: 1. No CT evidence of pulmonary embolism. 2. Worsening of ground-glass opacities in the lungs. POS: [facility]
[2020-04-28] MEDS ORDERED: Azithromycin 250 MG in Sodium Chloride 0.9% 250 ML 250 ML IVPB SCH (09:45)
[2020-04-28 10:19] LABS: Troponin I Less than 0.010 ng/mL (< 0.028)
[2020-04-28 11:25] VITALS: BMI 24.4
[2020-04-28] MEDS ORDERED: Potassium Chloride 20 MEQ TAB PO SCH (11:45)
[2020-04-28] MEDS ORDERED: Potassium Chloride 40 MEQ in Premix Bag 1 BAG IVPB SCH (11:45)
[2020-04-28] MEDS: Lactated Ringer's 1,000 ML IV SCH ×2 (14:56)
[2020-04-28 15:50] LABS: Anion Gap 12 mmol/L (10-20); BUN (Urea Nitrogen) 6 mg/dL (9.8-20.1); Calc. Creatinine Clearance 68 mL/min (70-130); Calcium 8.1 mg/dL (7.8-10.44); Carbon Dioxide 23 mmol/L (23-31); Chloride 100 mmol/L (98-107); Estimated GFR-MDRD 84; Glucose 79 mg/dL (80-115); Sodium 131 mmol/L (136-145)
[2020-04-28 15:53] LABS: Troponin I 0.011 ng/mL (< 0.028)
--- NOTE | 2020-04-28 15:57 | CON ---
DATE OF CONSULTATION: 04/28/2020 REASON FOR CONSULTATION: COVID pneumonia. HISTORY OF PRESENT ILLNESS: A 64-year-old with history of ovarian cancer, on chemotherapy in the [place] close to [place] and presumably with good response, who developed fever, general malaise, and cough on 04/21, initially admitted on 04/24, and she was given azithromycin and Rocephin and then she was discharged when her O2 sats remained stable on room air. She did not last long in the outpatient setting, she was readmitted today because of worsening dyspnea, cough, and some hemoptysis as well. No headaches. Had a temperature of 101. No chest pain. No abdominal pain or diarrhea. No genitourinary symptoms. Did have diarrhea at the beginning of the illness. No joint symptoms or neurological issues. PAST MEDICAL HISTORY: 1. Ovarian cancer, on chemotherapy, port in the right subclavian location. 2. Hysterectomy. 3. Tubal ligation. SOCIAL HISTORY: Never smoker. Lives in the area. FAMILY HISTORY: Noncontributory. ALLERGIES: CODEINE AND LATEX. CURRENT MEDICATIONS: 1. Eliquis. 2. Azithromycin. 3. Decadron. 4. Feosol. 5. Zestril. 6. Claritin. 7. Zofran. 8. Zoloft. PHYSICAL EXAMINATION: VITAL SIGNS: Temperature 99.7, she is saturating at 95 on room air. SKIN: She has alopecia. She has an accessed right subclavian port. No lymphadenopathy. HEENT: Ocular movements are conjugate. Oral cavity unremarkable. NECK: Supple. LUNGS: Symmetric air entry. A few crackles at the bases on right and left side. HEART: S1 and S2. Regular rate. No S3 or S4. ABDOMEN: Soft, not distended or tender. No ascites. No bladder distention. EXTREMITIES: No joint inflammatory activity. No edema. Pulses are 1+ in dorsalis pedis. NEUROLOGIC: Nonfocal including cognitive function. LABORATORY STUDIES: Sodium 136, potassium 2.9, creatinine 0.7, AST 35, ALT 17, and albumin 3.4. CRP 24. D-dimer 1.08. Ferritin 4371. One set of blood cultures with coagulase-negative Staph, likely contaminant. CT of chest, ground-glass opacities in lungs. ASSESSMENT: 1. Ovarian cancer, on chemo. 2. Moderate COVID pneumonia. She is satting at 95 on room air. This is the 8 day of illness, so right now I would probably continue the Decadron and I do not think she would benefit from antiviral treatment at this point in time, but I do not have any qualms about giving her plasma, this is not yet of proven benefit, but now it is a low risk of adverse reactions. Certainly, the longer we will wait until less benefit from antiviral treatment expected. Monitor ferritin, D-dimer, and CRP every other day and she is already on apixaban, that is Eliquis. Discontinue azithromycin. Job ID: [id number]
[2020-04-28] MEDS: Dexamethasone 4 mg/ml Vial SLOW IVP SCH (21:25)
[2020-04-28] MEDS: Apixaban 5 MG TAB PO SCH (21:26)
[2020-04-28] MEDS ORDERED: Aluminum & Magnesium Hydroxide 60 ML, Lidocaine 2% Viscous Solution 30 ML, diphenhydrAM... SSW PRN (22:56)
[2020-04-29 05:26] LABS: #Lymphocytes 0.4 thou/uL (1.20-3.40); #Neutrophils 4.9 thou/uL (1.40-6.50); %Basophils 0.3 % (0.0-1.0); %Eosinophils 0.1 % (0.0-10.0); %Lymphocytes 7.5 % (21.0-51.0); %Monocytes 0.5 % (0.0-10.0); %Neutrophils 91.6 % (42.0-75.0); Hemoglobin 7.9 g/dL (12.0-16.0); Mean Corpuscular HGB CONC 34.6 g/dL (32.0-36.0); Mean Corpuscular Volume 92.5 fL (78.0-98.0); Mean Platelet Volume 7.1 fL (7.4-10.4); Platelet Count 125 thou/uL (130-400); RBC Distribution Width 17.9 % (11.5-14.5); Red Blood Cell (RBC) Count 2.48 mill/uL (4.20-5.40); White Blood Cell (WBC) Count 5.4 thou/uL (4.8-10.8)
[2020-04-29 05:49] LABS: ALT (SGPT) 16 U/L (8-55); AST (SGOT) 29 U/L (5-34); Albumin 3.2 g/dL (3.4-4.8); Alkaline Phosphatase 205 U/L (40-110); Anion Gap 12 mmol/L (10-20); BUN (Urea Nitrogen) 7 mg/dL (9.8-20.1); Bilirubin, Total 0.4 mg/dL (0.2-1.2); Calc. Creatinine Clearance 69 mL/min (70-130); Calcium 8.4 mg/dL (7.8-10.44); Carbon Dioxide 25 mmol/L (23-31); Chloride 99 mmol/L (98-107); Estimated GFR-MDRD 85; Globulin 3.4 g/dL (2.4-3.5); Glucose 83 mg/dL (80-115); Potassium 4.5 mmol/L (3.5-5.1); Protein, Total 6.6 g/dL (6.0-8.3); Sodium 131 mmol/L (136-145)
--- NOTE | 2020-04-29 06:24 | PDOC.FM ---
- Subjective Subjective: Patient doing well this morning. Still having occasional cough. O2 requirement down to 1 L via N/C. Patient anxious about being able to receive her last chemo treatment scheduled for 05/06/2020 in [place]. - Objective MAR Reviewed: Yes Vital Signs & Weight: Vital Signs (12 hours) Temp Pulse Pulse Resp BP BP Pulse Ox 04/29/20 04:00 98.7 F 78 78 18 131/64 131/64 98 04/29/20 02:56 98.8 F 80 18 116/61 04/29/20 02:41 99 F 85 18 117/62 04/29/20 00:00 99.6 F 92 18 121/61 94 L 04/28/20 20:00 99.7 F H 83 18 132/63 94 L Weight Weight 54.885 kg I&O: 04/27/20 04/28/20 04/29/20 06:59 06:59 06:59 Intake Total 1970 Output Total 900 Balance 1070 Result Diagrams: 04/29/20 04:39 04/29/20 04:39 Phys Exam - Physical Examination Constitutional: NAD HEENT: moist MMs, sclera anicteric Neck: no JVD, supple, full ROM Respiratory: no wheezing, clear to auscultation bilateral Cardiovascular: RRR, no significant murmur Gastrointestinal: soft, no distention Musculoskeletal: no edema, pulses present Neurological: normal sensation, moves all 4 limbs Psychiatric: normal affect, A&O x 3 Skin: no rash, normal turgor Dx/Plan (1) Acute respiratory failure with hypoxia Code(s): J96.01 - ACUTE RESPIRATORY FAILURE WITH HYPOXIA Status: Acute (2) Hypokalemia Code(s): E87.6 - HYPOKALEMIA Status: Acute (3) COVID-19 Code(s): U07.1 - COVID-19 Status: Acute (4) Hypertension Code(s): I10 - ESSENTIAL (PRIMARY) HYPERTENSION Status: Acute Qualifiers: Hypertension type: essential hypertension Qualified Code(s): I10 - Essential (primary) hypertension (5) Hyponatremia Code(s): E87.1 - HYPO-OSMOLALITY AND HYPONATREMIA Status: Acute (6) Ovarian cancer Status: Chronic Qualifiers: Laterality: unspecified laterality Qualified Code(s): C56.9 - Malignant neoplasm of unspecified ovary - Plan Plan: Acute hypoxic respiratory failure 2/2 COVID pneumonia Patient denies history of respiratory problems or use of O2 at baseline. Positive for COVID19 on 04/21, symptoms started 04/19. She was recently admitted on 04/24- with sepsis 2/2 COVID pneumonitis. O2 sats improved from 85% RA to 100 % 2L in the ED. On VBG: pH 7.4, CO2 21.1, O2 70.3, Bicarb 20.1. D-dimer 1.08. CXR showed bilateral lower lobe infiltrates. Patient will be admitted to tele inpatient. -CRP 25, Ferritin 4371 -D-dimer daily: 1.08> 1.08 -Pro-leyla daily: 0.99 > 0.4 -CTA bilateral lower lobe infiltrates -Decadron IV 4mg BID -Azithromycin 250mg IV daily--completed course started 04/24 -Acetaminophen 650mg Q8H PRN for fever -Droplet and airborne precautions -Consult ID-Dr. Gutiérrez for Convalescent plasma, appreciate recs -given Conv. plasma @ 0240 on 04/29 -not candidate for Remdesevir d/t date of symptom onset, and cancer dx -CM to arrange for home O2 if needed Hypokalemia K was 2.9 on VBG on admission > 4.5 this AM -K 40 mEq PO -monitor on AM labs Hyponatremia Likely hypovolemic related to poor oral intake. Patient was hyponatremic during recent admission. Na 126 in ED. -Encourage PO intake -Daily BMP Ovarian cancer with mets Patient followed by oncology in the [place]. Most recent chemotherapy was on . -Next chemotherapy is 05/06 HTN BP stable. -Continue lisinopril 10mg daily Anemia of Chronic Disease Hgb was noted to be in the 9s during recent admission. Most recent Hgb is 9.3. -Continue iron supplement Depression -Continue sertraline 25mg daily PCP: Mary Code status: FULL PPx: home Eliquis Diet: HH Dispo: Stable, admitted to COVID unit on medical floor. Case management to arrange for Home oxygen today. Anticipate discharge in next 24-48 hours. Addendum - Attending - Attending Attestation Date/Time: 04/29/20 4658 I personally evaluated the patient and discussed the management with Dr. Song. I agree with the History, Examination, Assessment and Plan documented above with any addition or exceptions noted below. Patient overall stable. Her O2 requirement has remained stable. She is s/p plasma infusion. Working to get her set up for home O2 therapy and if so she will likely be stable for discharge home with close outpatient monitoring.
[2020-04-29] MEDS: Lisinopril 10 MG TAB PO SCH (08:59)
[2020-04-29] MEDS: Ferrous Sulfate 325 MG TAB PO SCH (09:00)
[2020-04-29] MEDS: Apixaban 5 MG TAB PO SCH ×2 (09:00→20:26)
[2020-04-29] MEDS: Dexamethasone 4 mg/ml Vial SLOW IVP SCH ×2 (09:00→20:26)
[2020-04-29] MEDS: Loratadine 10 MG TAB PO SCH (09:00)
--- NOTE | 2020-04-30 08:35 | PDOC.FM ---
- Subjective Subjective: Patient feeling well this morning. Has occasional dry cough which she says in improving. Did have mild nose bleed (described as thick blood tinged mucous) this morning which stopped in less than 1 minute. Denies any SOB or chest pain. Patient is still awaiting insurance approval for home oxygen. - Objective MAR Reviewed: Yes Vital Signs & Weight: Vital Signs (12 hours) Temp Pulse Resp BP Pulse Ox 04/30/20 04:00 98.2 F 76 18 124/60 98 Weight Admit Weight 54.885 kg Weight 54.885 kg I&O: 04/29/20 04/30/20 05/01/20 06:59 06:59 06:59 Intake Total 1970 800 Output Total 900 200 Balance 1070 600 Result Diagrams: 04/29/20 04:39 04/30/20 10:02 Phys Exam - Physical Examination Constitutional: NAD HEENT: moist MMs, sclera anicteric Neck: no JVD, supple, full ROM Respiratory: no wheezing, clear to auscultation bilateral Cardiovascular: RRR, no significant murmur Gastrointestinal: soft Musculoskeletal: no edema, pulses present Neurological: normal sensation, moves all 4 limbs Psychiatric: normal affect, A&O x 3 Skin: no rash, normal turgor Dx/Plan (1) Acute respiratory failure with hypoxia Code(s): J96.01 - ACUTE RESPIRATORY FAILURE WITH HYPOXIA Status: Acute (2) Hypokalemia Code(s): E87.6 - HYPOKALEMIA Status: Acute (3) COVID-19 Code(s): U07.1 - COVID-19 Status: Acute (4) Hypertension Code(s): I10 - ESSENTIAL (PRIMARY) HYPERTENSION Status: Acute Qualifiers: Hypertension type: essential hypertension Qualified Code(s): I10 - Essential (primary) hypertension (5) Hyponatremia Code(s): E87.1 - HYPO-OSMOLALITY AND HYPONATREMIA Status: Acute (6) Ovarian cancer Status: Chronic Qualifiers: Laterality: unspecified laterality Qualified Code(s): C56.9 - Malignant neoplasm of unspecified ovary - Plan Plan: Acute hypoxic respiratory failure 2/2 COVID pneumonia Patient denies history of respiratory problems or use of O2 at baseline. Positive for COVID19 on 04/21, symptoms started 04/19. She was recently admitted on 04/24-5 with sepsis 2/2 COVID pneumonitis. O2 sats improved from 85% RA to 100 % 2L in the ED. On VBG: pH 7.4, CO2 21.1, O2 70.3, Bicarb 20.1. D-dimer 1.08. CXR showed bilateral lower lobe infiltrates. Patient admitted to [facility] inpatient. -CRP 25, Ferritin 4371 -D-dimer daily: 1.08> 1.08 -Pro-leyla daily: 0.99 > 0.4 -CTA bilateral lower lobe infiltrates -Decadron IV 4mg BID -Azithromycin 250mg IV daily--completed course started 04/24 -Acetaminophen 650mg Q8H PRN for fever -Droplet and airborne precautions -Consult ID-Dr. Gutiérrez for Convalescent plasma, appreciate recs -given Conv. plasma @ 0240 on 04/29 -not candidate for Remdesevir d/t date of symptom onset, and cancer dx -CM to arrange for home O2, still pending insurance approval Hypokalemia, resolved K was 2.9 on VBG on admission > 4.5 -K 40 mEq PO Hyponatremia, resolved Likely hypovolemic related to poor oral intake. Patient was hyponatremic during recent admission. Na 126 in ED.> 131 -Encourage PO intake -Daily BMP Ovarian cancer with mets Patient followed by oncology in the [place]. Most recent chemotherapy was on . -Next chemotherapy is 05/06 HTN BP stable. -Continue lisinopril 10mg daily Anemia of Chronic Disease Hgb was noted to be in the 9s during recent admission. Most recent Hgb is 9.3. -Continue iron supplement Depression -Continue sertraline 25mg daily PCP: Mary Code status: FULL PPx: home Eliquis Diet: HH Dispo: Stable, admitted to COVID unit on medical floor. Case management to arrange for Home oxygen today. Anticipate discharge in next 24-48 hours. Addendum - Attending - Attending Attestation Date/Time: 04/30/20 0202 I personally evaluated the patient and discussed the management with Dr. Song. I agree with the History, Examination, Assessment and Plan documented above with any addition or exceptions noted below. Patient stable from her COVID pneumonia with hypoxia. She will be discharged once we can get her setup with home O2 due to her persistent need for O2 supplementation.
[2020-04-30] MEDS: Lisinopril 10 MG TAB PO SCH (09:37)
[2020-04-30] MEDS: Loratadine 10 MG TAB PO SCH (09:37)
[2020-04-30] MEDS: Apixaban 5 MG TAB PO SCH ×2 (09:37→22:08)
[2020-04-30] MEDS: Ferrous Sulfate 325 MG TAB PO SCH (09:37)
[2020-04-30] MEDS: Dexamethasone 4 mg/ml Vial SLOW IVP SCH ×2 (09:38→22:08)
[2020-04-30 10:51] LABS: Anion Gap 15 mmol/L (10-20); BUN (Urea Nitrogen) 12 mg/dL (9.8-20.1); Calc. Creatinine Clearance 69 mL/min (70-130); Carbon Dioxide 22 mmol/L (23-31); Chloride 97 mmol/L (98-107); Estimated GFR-MDRD 85; Glucose 81 mg/dL (80-115); Potassium 3.9 mmol/L (3.5-5.1); Sodium 130 mmol/L (136-145)
--- NOTE | 2020-05-01 08:10 | PDOC.FM ---
- Subjective Subjective: Patient feeling well this morning, wants to go home. Says she is wearing her N/ C oxygen supplementation prn in the room. Whenever she gets up to walk around she feels SOB, this improves with rest. Still has a cough, denies any other nose bleeds. She is still awaiting insurance approval for home o2. - Objective MAR Reviewed: Yes Vital Signs & Weight: Vital Signs (12 hours) Temp Pulse Resp BP Pulse Ox 05/01/20 05:00 98.6 F 58 L 18 118/67 100 05/01/20 02:32 98 Weight Admit Weight 54.885 kg Weight 54.885 kg I&O: 04/30/20 05/01/20 05/02/20 06:59 06:59 06:59 Intake Total 800 1380 Output Total 200 400 Balance 600 980 Result Diagrams: 04/29/20 04:39 04/30/20 10:02 Phys Exam - Physical Examination Constitutional: NAD HEENT: moist MMs, sclera anicteric Neck: no JVD, supple Respiratory: no wheezing, clear to auscultation bilateral Cardiovascular: RRR, no significant murmur Gastrointestinal: soft, positive bowel sounds Musculoskeletal: no edema, pulses present Neurological: normal sensation, moves all 4 limbs Psychiatric: normal affect, A&O x 3 Skin: no rash, normal turgor Dx/Plan (1) Acute respiratory failure with hypoxia Code(s): J96.01 - ACUTE RESPIRATORY FAILURE WITH HYPOXIA Status: Acute (2) Hypokalemia Code(s): E87.6 - HYPOKALEMIA Status: Acute (3) COVID-19 Code(s): U07.1 - COVID-19 Status: Acute (4) Hypertension Code(s): I10 - ESSENTIAL (PRIMARY) HYPERTENSION Status: Acute Qualifiers: Hypertension type: essential hypertension Qualified Code(s): I10 - Essential (primary) hypertension (5) Hyponatremia Code(s): E87.1 - HYPO-OSMOLALITY AND HYPONATREMIA Status: Acute (6) Ovarian cancer Status: Chronic Qualifiers: Laterality: unspecified laterality Qualified Code(s): C56.9 - Malignant neoplasm of unspecified ovary - Plan Plan: Acute hypoxic respiratory failure 2/2 COVID pneumonia Patient denies history of respiratory problems or use of O2 at baseline. Positive for COVID19 on 04/21, symptoms started 04/19. She was recently admitted on 04/24- with sepsis 2/2 COVID pneumonitis. O2 sats improved from 85% RA to 100 % 2L in the ED. On VBG: pH 7.4, CO2 21.1, O2 70.3, Bicarb 20.1. D-dimer 1.08. CXR showed bilateral lower lobe infiltrates. Patient admitted to tele inpatient. -CRP 25, Ferritin 4371 -D-dimer: 1.08> 1.08 -Pro-leyla: 0.99 > 0.4 -CTA bilateral lower lobe infiltrates -Decadron IV 4mg BID -Azithromycin 250mg IV daily--completed course started 04/24 -Acetaminophen 650mg Q8H PRN for fever -Droplet and airborne precautions -Consult ID-Dr. Gutiérrez for Convalescent plasma, appreciate recs -given Conv. plasma @ 0240 on 04/29 -not candidate for Remdesevir d/t date of symptom onset, and cancer dx -CM to arrange for home O2, still pending insurance approval Hypokalemia, resolved K was 2.9 on VBG on admission > 4.5 -K 40 mEq PO Hyponatremia, resolved Likely hypovolemic related to poor oral intake. Patient was hyponatremic during recent admission. Na 126 in ED.> 131 -Encourage PO intake -Daily BMP Ovarian cancer with mets Patient followed by oncology in the [place]. Most recent chemotherapy was on . -Next chemotherapy is 05/06 HTN BP stable. -Continue lisinopril 10mg daily Anemia of Chronic Disease Hgb was noted to be in the 9s during recent admission. Most recent Hgb is 7.9 -Continue iron supplement Depression -Continue sertraline 25mg daily PCP: Mary Code status: FULL PPx: home Eliquis Diet: HH Dispo: Stable, admitted to COVID unit on medical floor. Anticipate discharge whenever home oxygen is arranged. Addendum - Attending - Attending Attestation Date/Time: 05/01/20 9217 I personally evaluated the patient and discussed the management with Dr. Song. I agree with the History, Examination, Assessment and Plan documented above with any addition or exceptions noted below. Patient doing well. Still requiring O2 for her COVID pneumonia. Hopefully getting approved for O2 today and will be stable for discharge home.
[2020-05-01] MEDS: Loratadine 10 MG TAB PO SCH (08:45)
[2020-05-01] MEDS: Dexamethasone 4 mg/ml Vial SLOW IVP SCH (08:45)
[2020-05-01] MEDS: Ferrous Sulfate 325 MG TAB PO SCH (08:45)
[2020-05-01] MEDS: Lisinopril 10 MG TAB PO SCH (08:45)
[2020-05-01] MEDS: Apixaban 5 MG TAB PO SCH (08:45)
[2020-05-01 12:42] VITALS: BP 157/73; TEMP 98.6
--- NOTE | 2020-05-03 22:36 | DIS ---
DATE OF ADMISSION: 04/28/2020 DATE OF DISCHARGE: 05/01/2020 PRIMARY CARE PHYSICIAN: Tristin Hernandez MD RESIDENT: Lisbet Song DO ADMITTING ATTENDING: Juice Celis MD DISCHARGE ATTENDING: Juice Celis MD CONSULT: Infectious Disease, Dr. Gutiérrez. PROCEDURES: 1. Chest x-ray on April 28, 2020: Mild patchy bilateral lower lobe infiltrates. 2. CTA chest on April 28, 2020: No CT evidence of pulmonary embolism. Worsening of ground-glass opacities in the lungs. PRIMARY DIAGNOSES: Acute hypoxic respiratory failure secondary to COVID-19 pneumonia. SECONDARY DIAGNOSES: 1. Hypokalemia. 2. Hyponatremia. 3. Ovarian cancer with metastasis. 4. Hypertension. 5. Anemia of chronic disease. 6. Depression. DISCHARGE MEDICATIONS: 1. Claritin 10 mg p.o. daily. 2. Sertraline 25 mg p.o. daily. 3. Lisinopril 10 mg p.o. daily. 4. Eliquis 5 mg p.o. b.i.d. 5. Ferrous sulfate 325 mg p.o. daily. 6. Acetaminophen 650 mg p.o. q.4 hours p.r.n. DISCONTINUED MEDICATIONS: Azithromycin 250 mg p.o. daily, completed course. HOSPITAL COURSE: The patient is a 64-year-old female, who presented to [facility] Emergency Department on April 28, 2020 with a complaint of shortness of breath and cough for the past nine days that significantly worsened one day ago. The patient was recently discharged on April 24 for sepsis secondary to COVID-19. During that admission, she was placed on azithromycin, she has subsequently completed that treatment. The patient tested positive for COVID-19 on April 22, 2020. Her symptoms include generalized weakness, clear sputum with blood-tinged, congestion, and fever at home of 101 Fahrenheit. In the Emergency Department, the patient was noted to have an oxygen saturation of 85% on room air, which improved to 100% on 2 L oxygen via nasal cannula. Temperature was found to be 101.5 Fahrenheit and respirations of 28. Chest x-ray and CT chest confirmed worsening of COVID pneumonia. The patient was admitted to the medical unit on COVID precautions. She was continued to require oxygen supplementation for the duration of her stay. On April 29, 2020, a Case Management consult was placed to arrange for home oxygen. The patient's respiratory symptoms gradually improved over the following days. Home oxygen was finally approved and arranged on May 01, 2020. The patient was discharged home once portable oxygen had arrived at the hospital. During the patient's stay, she did receive Decadron IV 4 mg b.i.d. for the duration of her stay, she completed her azithromycin course on April 30. The patient was also given convalescent plasma on April 29. The patient was not a candidate for Remdesivir due to her date of symptom onset and cancer diagnosis. Of note, the patient had a potassium of 2.9 on admission, this was repleted with potassium rising to 4.5. The patient was also noted on admission to have a sodium of 126, this is likely due to hypovolemia related to poor oral intake. P.O. intake was encouraged and sodium improved to 131. DISPOSITION: Stable. DISCHARGE INSTRUCTIONS: 1. Location: Home. 2. Diet: Heart healthy. 3. Activity: As tolerated. 4. Follow up with PCP Dr. Hernandez in 3 to 5 days for hospital followup. Job ID: [id number]
== END 2020-05-01 14:45 | disposition home or self-care (01) | DRG 177 ==
LOC: ERS 05:20 → 2SW 08:44
PROVIDERS: ADMIT Student in an Organized Health Care Education/Training Program; ATTEND Student in an Organized Health Care Education/Training Program
PROC: 8E0ZXY6 Isolation (ICD-10-PCS; principal; 2020-04-28)
PROC: 30233L1 Transfusion of Nonautologous Fresh Plasma into Peripheral Vein, Percutaneous Approach (ICD-10-PCS; 2020-04-28)
PROC: 30233K1 Transfusion of Nonautologous Frozen Plasma into Peripheral Vein, Percutaneous Approach (ICD-10-PCS; 2020-04-28)
DX: U07.1 COVID-19 (principal); J96.01 Acute respiratory failure with hypoxia; J12.89 Other viral pneumonia; E87.1 Hypo-osmolality and hyponatremia; C56.9 Malignant neoplasm of unspecified ovary; C78.7 Secondary malignant neoplasm of liver and intrahepatic bile duct; C78.00 Secondary malignant neoplasm of unspecified lung; F32.9 Major depressive disorder, single episode, unspecified; E87.6 Hypokalemia; E86.1 Hypovolemia; D63.8 Anemia in other chronic diseases classified elsewhere; I10 Essential (primary) hypertension; Z88.5 Allergy status to narcotic agent; Z88.0 Allergy status to penicillin; Z91.040 Latex allergy status; Z79.899 Other long term (current) drug therapy; Z79.01 Long term (current) use of anticoagulants; Z90.710 Acquired absence of both cervix and uterus; Z98.51 Tubal ligation status
CPT/HCPCS: 36415; 36430; 71045; 71275; 80048; 80053; 81003; 81015; 82330; 82570; 82728; 82803; 83605; 83615; 83735; 83930; 83935; 84100; 84145; 84300; 84484; 85025; 85379; 85610; 85730; 86140; 86850; 86900; 86901; 87040; 87086; 87149; 93005; 96361; 96365; 96366; 96367; G0378; J0456; J0692; J0696; J1100; J1642; J3475; J3490; J7050; Q0163; Q9967

== ENCOUNTER 2020-05-20 11:40 | Inpatient (IN) | payer MEDICARE, OTHER ==
--- NOTE | 2020-05-20 12:28 | RAD ---
PORTABLE CHEST 1 VIEW: DATE: 05/20/2020. TIME: 12:19 PM. HISTORY: Chest pain. COVID positive patient on chemotherapy. COMPARISON: 04/28/2020. FINDINGS/IMPRESSION: There has been mild interval worsening of the patchy infiltrates in the lung cain bilaterally since the last exam. The heart size is stable. Right-sided Port-A-Cath remains in place. No pneumothora isa or large effusions are seen. POS: OFF
[2020-05-20 12:47] LABS: #Basophils 0.1 thou/uL (0.0-0.2); #Eosinphils 0.2 thou/uL (0.0-0.7); #Lymphocytes 1.1 thou/uL (1.20-3.40); #Monocytes 0.3 thou/uL (0.11-0.59); #Neutrophils 3.3 thou/uL (1.40-6.50); %Basophils 1.5 % (0.0-1.0); %Eosinophils 4.1 % (0.0-10.0); %Lymphocytes 22.4 % (21.0-51.0); %Monocytes 6.4 % (0.0-10.0); %Neutrophils 65.5 % (42.0-75.0); Mean Corpuscular HGB CONC 32.6 g/dL (32.0-36.0); Mean Corpuscular Hemoglobin 31.2 pg (27.0-31.0); Mean Corpuscular Volume 95.7 fL (78.0-98.0); Platelet Count 422 thou/uL (130-400); RBC Distribution Width 17.2 % (11.5-14.5); Red Blood Cell (RBC) Count 3.86 mill/uL (4.20-5.40)
[2020-05-20 13:09] LABS: ALT (SGPT) 9 U/L (8-55); AST (SGOT) 22 U/L (5-34); Albumin 3.7 g/dL (3.4-4.8); Alkaline Phosphatase 180 U/L (40-110); Anion Gap 12 mmol/L (10-20); BUN (Urea Nitrogen) 9 mg/dL (9.8-20.1); Bilirubin, Total 0.4 mg/dL (0.2-1.2); Calc. Creatinine Clearance 0 mL/min (70-130); Calcium 8.8 mg/dL (7.8-10.44); Carbon Dioxide 27 mmol/L (23-31); Chloride 93 mmol/L (98-107); Estimated GFR-MDRD 78; Globulin 3.9 g/dL (2.4-3.5); Glucose 110 mg/dL (80-115); Potassium 3.9 mmol/L (3.5-5.1); Protein, Total 7.6 g/dL (6.0-8.3); Sodium 128 mmol/L (136-145)
[2020-05-20] MEDS ORDERED: Cefepime 2 GM VIAL ONE (13:52)
[2020-05-20] MEDS ORDERED: Sodium Chloride 0.9% 100 ML ONE (13:53)
[2020-05-20] MEDS ORDERED: HYDROcodone/Acetaminophen 5/325 mg Tablet ONE (14:05)
--- NOTE | 2020-05-20 14:17 | PDOC.FPRHP ---
- History of Present Illness Chief Complaint: shoulder pain History of Present Illness: This is a 65yo F with PMH of ovarian cancer with mets who presents with bilateral shoulder pain and worsening SOB due to known COVID +. The patient was recently discharged on 05/03/20 from our service after being treated for COVID PNA. She test positive for COVID on 04/22/20. She had home O2 arranged at last visit. She received decadron IV for the duration of her last hospitalization and completed a course of azithromycin. She has also been given convalescent plasma on 04/29/20. She as not a candidate for remdesivir due to her onset of symptoms and cancer diagnosis. The patient has a chronically low sodium. She has poor oral intake. The patient came to the ER today mostly due to her increasing bilateral shoulder pain over the last week. Worse on the left. Pain is intermittent. Patient continues to have SOB. Endorses cough. Denies any recent fevers. She is currently undergoing chemotherapy for her ovarian cancer with mets. She was recently retested and still positive as of 3-4 days ago. ED Course: vanc, levoquin, cefepime, norco - Allergies/Adverse Reactions Allergies Allergy/AdvReac Type Severity Reaction Status Date / Time codeine Allergy Verified 04/28/20 11:14 latex Allergy Verified 04/28/20 11:14 Penicillins Allergy Rash Verified 04/28/20 11:14 - Home Medications Medication Instructions Recorded Confirmed Type Apixaban [Eliquis] 5 mg PO BID 04/24/20 04/28/20 History Ferrous Sulfate 325 mg PO DAILY 04/24/20 04/28/20 History Lisinopril 10 mg PO DAILY 04/24/20 04/28/20 History Loratadine [Claritin] 10 mg PO DAILY 04/24/20 04/28/20 History Sertraline HCl 25 mg PO DAILY 04/24/20 04/28/20 History Acetaminophen [Tylenol Regular 650 mg PO Q4H PRN tab 04/25/20 04/28/20 Rx Strength] - History PMHx: ovarian cancer with mets, HTN, depression PSHx: b/l knee replacement, hysterectomy, partial tubal ligation FHx: non contributory Social: denies drug, alcohol or tobacco use - Review of Systems General: denies: fever/chills, weight/appetite/sleep changes, night sweats, fatigue Eyes: denies: vision changes ENT: denies: nasal congestion, rhinorrhea Respiratory: reports: cough (slight). denies: congestion, shortness of breath, exercise intolerance Cardiovascular: denies: chest pain, palpitation, edema Gastrointestinal: denies: nausea, vomiting, diarrhea, constipation, abdominal pain Skin: denies: rashes Musculoskeletal: reports: pain, tenderness. denies: stiffness, swelling Neurological: reports: weakness - Vital signs HR 90, RR 18, satting 100% on RA, BP nml - Physical Exam Constitutional: NAD, awake, alert and oriented, well developed HEENT: normocephalic and atraumatic, PERRLA Neck: supple, FROM Heart: RRR, normal S1/S2, no murmurs/rubs/gallops Lungs: CTAB, no respiratory distress, good air movement, no rales/rhonchi, no wheezing Abdomen: soft, non-tender, bowel sounds present, no masses/distention Musculoskeletal: normal structure, normal tone -Musculoskeletal: point tenderness on bilateral trapezius muscles Neurological: no focal deficit Skin: no rash/lesions, good turgor, capillary refill <2 seconds Psychiatric: normal mood and affect FMR H&P: Results - Labs Result Diagrams: 05/20/20 12:38 05/20/20 12:38 Lab results: WBC 5.0 thou/uL (4.8-10.8) 05/20/20 12:38 Hgb 12.0 g/dL (12.0-16.0) 05/20/20 12:38 Hct 36.9 % (36.0-47.0) 05/20/20 12:38 MCV 95.7 fL (78.0-98.0) 05/20/20 12:38 Plt Count 422 thou/uL (130-400) H 05/20/20 12:38 Neutrophils % 65.5 % (42.0-75.0) 05/20/20 12:38 Sodium 128 mmol/L (136-145) L 05/20/20 12:38 Potassium 3.9 mmol/L (3.5-5.1) 05/20/20 12:38 Chloride 93 mmol/L (98-107) L 05/20/20 12:38 Carbon Dioxide 27 mmol/L (23-31) 05/20/20 12:38 BUN 9 mg/dL (9.8-20.1) L 05/20/20 12:38 Creatinine 0.74 mg/dL (0.6-1.1) 05/20/20 12:38 Glucose 110 mg/dL (80-115) 05/20/20 12:38 Lactic Acid 2.2 mmol/L (0.5-2.2) 05/20/20 12:38 Calcium 8.8 mg/dL (7.8-10.44) 05/20/20 12:38 Total Bilirubin 0.4 mg/dL (0.2-1.2) 05/20/20 12:38 AST 22 U/L (5-34) 05/20/20 12:38 ALT 9 U/L (8-55) 05/20/20 12:38 Alkaline Phosphatase 180 U/L (40-110) H 05/20/20 12:38 B-Natriuretic Peptide Less than 10.0 pg/mL (0-100) 05/20/20 12:38 Serum Total Protein 7.6 g/dL (6.0-8.3) 05/20/20 12:38 Albumin 3.7 g/dL (3.4-4.8) 05/20/20 12:38 FMR H&P: A/P - Plan Shoulder pain 2/2 possible ovarian cancer metastasis Differential includes trigger points, possible bone mets, fibromyalgia, muscle strain Patient with hx of ovarian cancer s/p hysterectomy, currently getting chemotherapy. Recent CT showing mets to the liver. - Will order bone scan to evaluate - Consider heme/onc consult - Continue pain control with [place], ibuprofen, will also give flexeril - PT Hyponatremia Chronic issue - 2/2 hypovolemia and poor oral intake. Hyponatremic on previous admission. asymptomatic - PO hydration - continue to monitor. COVID + Patient tested positive on 04/22/20. - per recommendations for severely immunocompromised, patient has been >20 days of symptoms. Symptoms have improved. No fever for over a week. No precautions needed. - CXR showed mild worsening of PNA. Likely nml evolution of COVID PNA. No need to continue abx - procal 0.07. Patient's resp status is much improved from previous. No increased oxygen requirement. - Monitor O2 sats continuously, supplemental O2 as needed, ween if possible HTN - continue home meds - PRN available Depression - aware, continue home meds Dispo: admit to med, obs PCP: Mary Code: FULL Case discussed with Dr. Lopez Addendum - Attending - Attending Attestation Date/Time: 05/20/20 5170 I personally evaluated the patient and discussed the management with Dr. Stevens I agree with the History, Examination, Assessment and Plan documented above with any addition or exceptions noted below - 65yo F with PMH of ovarian cancer with mets who presents with bilateral shoulder pain. The patient was recently discharged on 05/03/20 from our service after being treated for COVID PNA. She test positive for COVID on 04/22/20. She had home O2 arranged at last visit. She received decadron IV for the duration of her last hospitalization and completed a course of azithromycin. She has also been given convalescent plasma on . She as not a candidate for remdesivir due to her onset of symptoms and cancer diagnosis. The patient came to the ER today mostly due to her increasing bilateral shoulder pain over the last week. Worse on the left. Pain is intermittent. It is relieved by the [place] but has been needing to use it more frequently. States cough has resolved. Denies any recent fevers. She is currently undergoing chemotherapy for her ovarian cancer with mets. She was recently retested and still positive as of 3-4 days ago. PMH/PSH/Meds/SH reviewed and agree with resident's documentation. Afebrile VSS Exam repeated by me and agree with resident's findings. A/P: 1) Shoulder pain - ?possibility of metastases- will place in obs and obtain a bone scan. Will increase norco to q4- 6 hours; has been only taking 2-3 times per day. 2) H/o COVID pneumonia- patient testing positive 04/22 with symptoms starting on 04/19. Was hospitalized 04/28/20 amd treated with convalescent plasma and dexamethasone. Per CDC guidelines for pateint's with immunocompromised states isolation precautions can be stopped after 20 days from onset of symptoms with symptom improvement and no fevers for last 24 hours without use of antipyrectics- patient meets all these criteria and so will not need isolation precautions.
[2020-05-20] MEDS ORDERED: Vancomycin 1 GM/200 ML BAG ONE (14:37)
[2020-05-20] MEDS ORDERED: Acetaminophen 650 MG Suppository PR PRN (15:37)
[2020-05-20] MEDS ORDERED: Ondansetron ODT 4 MG TAB PO PRN (15:37)
[2020-05-20] MEDS ORDERED: Ondansetron PF 4 MG/2 ML Vial IVP PRN (15:37)
[2020-05-20] MEDS ORDERED: Acetaminophen 325 MG TAB PO PRN (15:37)
[2020-05-20] MEDS ORDERED: HYDROcodone/Acetaminophen 5/325 mg Tablet PO PRN ×2 (15:37)
[2020-05-20] MEDS ORDERED: Bisacodyl 5 MG TAB PO PRN (15:37)
[2020-05-20] MEDS ORDERED: hydrALAZINE 20 MG/ML VIAL SLOW IVP PRN (15:43)
[2020-05-20 15:45] LABS: Lactic Acid 1.9 mmol/L (0.5-2.2)
[2020-05-20] MEDS ORDERED: Ibuprofen 800 MG TAB PO PRN (17:21)
[2020-05-20 17:53] LABS: Troponin I 0.046 ng/mL (< 0.028)
[2020-05-20] MEDS: Lactated Ringer's 1,000 ML IV SCH (18:15)
[2020-05-20 19:38] LABS: Troponin I 0.036 ng/mL (< 0.028)
[2020-05-20] MEDS: Cyclobenzaprine 10 MG TAB PO PRN (20:32)
[2020-05-20] MEDS ORDERED: Polyethylene Glycol 3350 17 GM Packet PO PRN (20:53)
[2020-05-20] MEDS ORDERED: Senokot 8.6 MG TAB PO PRN (20:53)
[2020-05-20] MEDS ORDERED: CeleCOXIB 100 MG CAP PO SCH (21:00)
[2020-05-20 22:25] VITALS: BMI 23.8
[2020-05-21] MEDS: Lactated Ringer's 1,000 ML IV SCH ×2 (02:44→08:34)
[2020-05-21 06:27] LABS: Band 8 % (5-11); Eosinophils 5 % (0-10); Hemoglobin 8.3 g/dL (12.0-16.0); Lymphocytes 23 % (21-51); MDiff Complete? YES; Mean Corpuscular HGB CONC 32.9 g/dL (32.0-36.0); Mean Corpuscular Hemoglobin 31.5 pg (27.0-31.0); Mean Corpuscular Volume 95.8 fL (78.0-98.0); Mean Platelet Volume 5.9 fL (7.4-10.4); Monocytes 8 % (0-10); Neutrophil 56 % (42-75); Platelet Count 397 thou/uL (130-400); Platelet Morphology Comment Appears Adequate; RBC Distribution Width 16.9 % (11.5-14.5); Red Blood Cell (RBC) Count 2.64 mill/uL (4.20-5.40); White Blood Cell (WBC) Count 5.3 thou/uL (4.8-10.8)
[2020-05-21 06:35] LABS: Anion Gap 8 mmol/L (10-20); BUN (Urea Nitrogen) 9 mg/dL (9.8-20.1); Calc. Creatinine Clearance 62 mL/min (70-130); Calcium 8.7 mg/dL (7.8-10.44); Carbon Dioxide 28 mmol/L (23-31); Chloride 93 mmol/L (98-107); Estimated GFR-MDRD 78; Glucose 75 mg/dL (80-115); Potassium 4.3 mmol/L (3.5-5.1); Sodium 125 mmol/L (136-145)
--- NOTE | 2020-05-21 07:26 | PDOC.FM ---
- Subjective Subjective: Pt reports being d/c home on 1 L [place] O2 after her COVID hospitalization. denies SOB, or coughing. C/o B shoulder pain L>R. Bone scan pending today. No acute overnight events. - Objective MAR Reviewed: Yes Vital Signs & Weight: Vital Signs (12 hours) Temp Pulse Resp BP Pulse Ox 05/21/20 04:00 97.7 F 68 18 134/83 95 05/21/20 00:55 97.6 F 80 18 137/78 97 05/20/20 20:00 97.6 F 81 18 142/80 H 97 Weight Weight 53.6 kg I&O: 05/20/20 05/21/20 05/22/20 06:59 06:59 06:59 Intake Total 1550 Output Total 350 Balance 1200 Result Diagrams: 05/21/20 05:38 05/21/20 05:38 Phys Exam - Physical Examination Constitutional: NAD HEENT: moist MMs, sclera anicteric Neck: supple, full ROM Respiratory: no wheezing, no rales, no rhonchi, clear to auscultation bilateral Cardiovascular: RRR, no significant murmur, no rub Gastrointestinal: soft, non-tender, no distention, positive bowel sounds Musculoskeletal: no edema, pulses present Neurological: non-focal, moves all 4 limbs Psychiatric: normal affect, A&O x 3 Skin: no rash, normal turgor, cap refill <2 seconds Dx/Plan (1) Shoulder pain, bilateral Code(s): M25.511 - PAIN IN RIGHT SHOULDER; M25.512 - PAIN IN LEFT SHOULDER Status: Acute (2) Anemia Code(s): D64.9 - ANEMIA, UNSPECIFIED Status: Chronic (3) Depression Code(s): F32.9 - MAJOR DEPRESSIVE DISORDER, SINGLE EPISODE, UNSPECIFIED Status : Chronic (4) Hypertension Code(s): I10 - ESSENTIAL (PRIMARY) HYPERTENSION Status: Chronic Qualifiers: Hypertension type: essential hypertension Qualified Code(s): I10 - Essential (primary) hypertension (5) Hyponatremia Code(s): E87.1 - HYPO-OSMOLALITY AND HYPONATREMIA Status: Chronic (6) Ovarian cancer Status: Chronic Qualifiers: Laterality: unspecified laterality Qualified Code(s): C56.9 - Malignant neoplasm of unspecified ovary - Plan Plan: Shoulder pain 2/2 possible ovarian cancer metastasis Differential includes trigger points, possible bone mets, fibromyalgia, muscle strain, referred pain from diaphragm Patient with hx of ovarian cancer s/p hysterectomy, currently getting chemotherapy. Recent CT showing mets to the liver. - Will order bone scan to evaluate - will consider heme/onc consult, Pt's oncology team in [place]. Will send records to Dr. Guevara upon d/c. - Continue pain control with [place], ibuprofen, will also give flexeril - PT consulted Hyponatremia Chronic issue - 2/2 hypovolemia and poor oral intake. Hyponatremic on previous admission. asymptomatic - PO hydration - continue to monitor. COVID + Patient tested positive on 04/22/20. - per recommendations for severely immunocompromised, patient has been >20 days of symptoms. Symptoms have improved. No fever for over a week. No precautions needed. - CXR showed mild worsening of PNA. Likely nml evolution of COVID PNA. No need to continue abx - procal 0.07. Patient's resp status is much improved from previous. No increased oxygen requirement. - Monitor O2 sats continuously, supplemental O2 as needed, ween if possible (1 L NC O2 sat 95-97%) HTN - continue home meds - PRN available Depression - aware, continue home meds Dispo: admit to med, obs PCP: Mary Code: FULL Addendum - Attending - Attending Attestation Date/Time: 05/21/20 1151 I personally evaluated the patient and discussed the management with Dr. Lantigua. I agree with the History, Examination, Assessment and Plan documented above with any addition or exceptions noted below. Pt remains on O2. Will see if pt can wean. Covid precautions in place. Pt denies shortness of breath. Bone scan is pending to look for mets. Will need to f/u with oncologist outpt. Will increase norco from twice a day to q 6 hours to help with pain.
[2020-05-21 10:49] VITALS: TEMP 97.5
[2020-05-21] MEDS: Cyclobenzaprine 10 MG TAB PO PRN (14:59)
--- NOTE | 2020-05-21 15:05 | NM ---
WHOLE BODY BONE SCAN: 05/21/20 INDICATION: History of cancer with metastatic disease and shoulder pain. COMPARISON: CTA of the chest dated 04/28/20. RADIOPHARMACEUTICAL: 32.6 millicuries of technetium 99m labeled MDP IV. FINDINGS: There are areas of patchy area of uptake involving the sternal body and manubrium corresponding to ar eas of sclerosis on the CT evaluation suspicious for osseous metastatic disease. There is an area of activity overlying the right chest wall consistent with some radiotracer accumulation within the nii ent's venous port. No additional focus of abnormal bone uptake is evident. Small sclerotic lesion is seen within this transverse process on the right at T10 on the comparison CT without definite corresp onding scintigraphic findings. IMPRESSION: Abnormal bone scan. There are areas of sclerotic densities seen on comparison CT that have corresponding areas of uptake suspicious for osseous metastatic disease. Small sclerotic lesion was present within the right T10 tr ansverse process may be too small for visualization on this bone scan. POS: [facility]
--- NOTE | 2020-05-21 17:10 | PDOC.BPN ---
- Brief Progress Note bone scan consistent with mets to T10 pt d/c home and to f/u with oncologist Dr Guevara in [place] for further treatment and evaluation of oncological problem. in stable condition.
[2020-05-21 18:13] VITALS: BP 100/64
--- NOTE | 2020-05-23 11:05 | DIS ---
DATE OF ADMISSION: 05/20/2020 DATE OF DISCHARGE: 05/21/2020 RESIDENT: Ellie Lantigua DO ADMITTING ATTENDING: Nell Lopez MD DISCHARGE ATTENDING: Debra Perry MD CONSULTS: None. PROCEDURES: Bone scan nuclear medicine, which showed on 05/21/2020, an abnormal bone scan. There are areas of sclerotic density seen on comparison CT that have corresponding areas of uptake suspicious for osseous metastatic disease. Small sclerotic lesion was present within the T10 transverse process, may be too small for visualization on this bone scan. Area of patchy uptake involving the sternal body and manubrium corresponding to the areas of sclerosis visualized on the CT. Chest x-ray on 05/20, which showed there has been mild interval worsening of the patchy infiltrates in the lung cain bilaterally since last chest x-ray. Heart size is normal. Right-sided Port-A-Cath remains in place. No pneumothoraces or large effusions visualized. DIAGNOSES: 1. Bilateral shoulder pain. 2. Ovarian cancer with metastases to the liver and possible bone metastases seen on bone scan. 3. Hyponatremia, chronic. 4. COVID positive test on 05/12, improved respiratory status. 5. Hypertension. 6. Depression. DISCHARGE MEDICATIONS: 1. Eliquis 5 mg p.o. b.i.d. 2. [place] 5/325 one to two p.o. q.4 hours p.r.n. for pain. 3. Loratadine 10 mg p.o. daily. 4. Sertraline 25 mg p.o. daily. HISTORY OF PRESENT ILLNESS/HOSPITAL COURSE: Ms. Tinoco is a 65-year-old female with a past medical history of ovarian cancer, who came into the emergency department with bilateral shoulder pain. We ordered a bone scan as it was suspicious for metastatic disease as she already has metastasis to the liver. She also was recently discharged due to COVID pneumonia. She was discharged on 1 L nasal cannula and remains on the 1 L while in the hospital. This was weaned down and she did okay without exertion, with normal oxygen saturation. So, it was recommended that she use her oxygen, especially when exerting herself, and to follow up with primary care to see if this oxygen is still necessary. The bone scan was completed on 05/21, which showed suspicious lesions for metastatic disease that were consistent with radio uptake to the areas on the CT scan over the sternum near the manubrium as well as a small area on T10 transverse process, which will need further imaging. It is our recommendation that the patient followup with her Oncology Team at the [facility] with Dr. Guevara to discuss further treatment options and discuss goals of care and plan with staging at this point. From a COVID standpoint, the patient was stable and had no new oxygen requirement, yes, the chest x-ray did show slight worsening appearance, but the patient's symptoms are much improved from discharge. The patient was very emotional to the news of spread to her bones from the ovarian cancer and ample time was spent with the patient to help her calm down for emotional support by me after speaking to her of this news. I also called the daughter, Chuyita, and had a long conversation with her about the diagnosis from the bone scan, and recommending that they follow up with their oncologist as soon as available, to be able to go over these results. The patient signed release of records before leaving the hospital. The bone scan to be sent over to Dr. Guevara in the [facility]. DISPOSITION: Stable upon discharge. DISCHARGE INSTRUCTIONS: 1. Location: To home. 2. Diet: Regular diet as tolerated. 3. Activity: As tolerated. 4. Followup: Follow up with Dr. Guevara in the [facility] for further workup and recommendations for treatment plans and goals of care. Follow up with PCP in 1 week. Job ID: [id number]
== END 2020-05-21 18:00 | disposition home or self-care (01) | DRG 542 ==
LOC: ERS 11:40 → T4-A 18:02
PROVIDERS: ADMIT Family Medicine; ATTEND Family Medicine
DX: C79.51 Secondary malignant neoplasm of bone (principal); U07.1 COVID-19; J12.89 Other viral pneumonia; C79.89 Secondary malignant neoplasm of other specified sites; E87.1 Hypo-osmolality and hyponatremia; C56.9 Malignant neoplasm of unspecified ovary; M25.512 Pain in left shoulder; M25.511 Pain in right shoulder; I10 Essential (primary) hypertension; F32.9 Major depressive disorder, single episode, unspecified; E86.1 Hypovolemia; Z96.653 Presence of artificial knee joint, bilateral; D64.9 Anemia, unspecified; Z88.0 Allergy status to penicillin; Z88.8 Allergy status to other drugs, medicaments and biological substances; Z91.040 Latex allergy status; Z90.710 Acquired absence of both cervix and uterus; Z98.51 Tubal ligation status
CPT/HCPCS: 36415; 71045; 78306; 80048; 80053; 83605; 83880; 84145; 84484; 85007; 85025; 85027; 87040; 93005; 96365; 96366; 96367; 96368; A9503; J0692; J1642; J1956; J3370; J3490

== ENCOUNTER 2020-12-25 09:31 | Outpatient (CLI) | payer MEDICARE, OTHER | END 2020-12-25 09:32 | disposition home or self-care (01) | LOC: BICRAD 09:31 | PROVIDERS: ATTEND Family Medicine | DX: M25.512 Pain in left shoulder (principal); R93.7 Abnormal findings on diagnostic imaging of other parts of musculoskeletal system ==

== ENCOUNTER 2021-04-16 09:00 | Outpatient (CLI) | payer MEDICARE, OTHER | END 2021-04-16 09:01 | disposition home or self-care (01) | LOC: BICRAD 09:00 | PROVIDERS: ATTEND Family Medicine | DX: J20.9 Acute bronchitis, unspecified (principal) | CPT/HCPCS: 71046 ==

== ENCOUNTER 2021-09-25 00:40 | Observation (INO) | payer MEDICARE ==
[2021-09-25 03:05] VITALS: BMI 31.4
[2021-09-25] MEDS ORDERED: Guaifenesin DM 100-10/5 ML UDCUP PO PRN (04:17)
[2021-09-25 05:36] LABS: Hemoglobin 8.5 g/dL (12.0-16.0); Mean Corpuscular HGB CONC 32.1 g/dL (32.0-36.0); Mean Corpuscular Hemoglobin 30.1 pg (27.0-31.0); Mean Corpuscular Volume 93.9 fL (78.0-98.0); Mean Platelet Volume 6.4 fL (7.4-10.4); Platelet Count 314 thou/uL (130-400); RBC Distribution Width 19.2 % (11.5-14.5); Red Blood Cell (RBC) Count 2.82 mill/uL (4.20-5.40); White Blood Cell (WBC) Count 8.9 thou/uL (4.8-10.8)
[2021-09-25 05:53] LABS: Anion Gap 11 mmol/L (10-20); BUN (Urea Nitrogen) 10 mg/dL (9.8-20.1); Calc. Creatinine Clearance 86 mL/min (70-130); Carbon Dioxide 23 mmol/L (23-31); Chloride 102 mmol/L (98-107); Glucose 88 mg/dL (80-115); Potassium 3.6 mmol/L (3.5-5.1); Sodium 132 mmol/L (136-145)
[2021-09-25 07:03] LABS: #Basophils 0.1 thou/uL (0.0-0.2); #Eosinphils 0.1 thou/uL (0.0-0.7); #Lymphocytes 0.9 thou/uL (1.20-3.40); #Monocytes 0.8 thou/uL (0.11-0.59); %Basophils 0.7 % (0.0-1.0); %Eosinophils 1.6 % (0.0-10.0); %Lymphocytes 10.6 % (21.0-51.0); %Monocytes 8.5 % (0.0-10.0); %Neutrophils 78.6 % (42.0-75.0); Anisocytosis MODERATE=16-30 cells (100X) (0-5/hpf); MDiff Complete? YES
[2021-09-25] MEDS: Levothyroxine Sodium 100 MCG TAB PO SCH (07:20)
[2021-09-25] MEDS: Apixaban 2.5 MG TAB PO SCH ×2 (08:10→21:18)
[2021-09-25] MEDS ORDERED: Iopamidol-370 76% 500 ML 1 ML ONE (12:28)
[2021-09-25] MEDS ORDERED: Acetaminophen 325 MG TAB PO PRN (20:39)
[2021-09-26 04:55] LABS: #Eosinphils 0.2 thou/uL (0.0-0.7); #Lymphocytes 0.9 thou/uL (1.20-3.40); #Monocytes 0.7 thou/uL (0.11-0.59); #Neutrophils 5.9 thou/uL (1.40-6.50); %Basophils 0.2 % (0.0-1.0); %Eosinophils 2.4 % (0.0-10.0); %Lymphocytes 12.2 % (21.0-51.0); %Neutrophils 76.3 % (42.0-75.0); Hemoglobin 8.6 g/dL (12.0-16.0); Mean Corpuscular HGB CONC 31.3 g/dL (32.0-36.0); Mean Corpuscular Hemoglobin 29.1 pg (27.0-31.0); Mean Corpuscular Volume 92.9 fL (78.0-98.0); Mean Platelet Volume 6.8 fL (7.4-10.4); Platelet Count 295 thou/uL (130-400); RBC Distribution Width 19.2 % (11.5-14.5); Red Blood Cell (RBC) Count 2.96 mill/uL (4.20-5.40); White Blood Cell (WBC) Count 7.7 thou/uL (4.8-10.8)
[2021-09-26 05:09] LABS: Anion Gap 10 mmol/L (10-20); BUN (Urea Nitrogen) 9 mg/dL (9.8-20.1); Calc. Creatinine Clearance 82 mL/min (70-130); Carbon Dioxide 27 mmol/L (23-31); Chloride 102 mmol/L (98-107); Glucose 100 mg/dL (80-115); Potassium 3.7 mmol/L (3.5-5.1); Sodium 135 mmol/L (136-145)
[2021-09-26] MEDS: Levothyroxine Sodium 100 MCG TAB PO SCH (06:23)
[2021-09-26] MEDS: Apixaban 2.5 MG TAB PO SCH (08:09)
[2021-09-26 12:20] VITALS: BP 106/53; TEMP 97.6
[2021-09-26 14:09] LABS: SARS-CoV-2 PCR by NAA Not Detected (NotDetected)
== END 2021-09-26 15:45 | disposition home health service (06) ==
LOC: 2NO 00:40 → INTOOBSV 00:40
PROVIDERS: ADMIT Family Medicine; ATTEND Family Medicine
DX: J96.21 Acute and chronic respiratory failure with hypoxia (principal); C56.9 Malignant neoplasm of unspecified ovary; C78.7 Secondary malignant neoplasm of liver and intrahepatic bile duct; C78.00 Secondary malignant neoplasm of unspecified lung; C79.51 Secondary malignant neoplasm of bone; E03.9 Hypothyroidism, unspecified; D64.89 Other specified anemias; E87.6 Hypokalemia; E88.09 Other disorders of plasma-protein metabolism, not elsewhere classified; E46 Unspecified protein-calorie malnutrition; Z68.31 Body mass index [BMI] 31.0-31.9, adult; Z20.822 Contact with and (suspected) exposure to COVID-19; Z86.16 Personal history of COVID-19; Z88.0 Allergy status to penicillin; Z88.5 Allergy status to narcotic agent; Z91.040 Latex allergy status; Z90.710 Acquired absence of both cervix and uterus; Z79.01 Long term (current) use of anticoagulants; Z86.718 Personal history of other venous thrombosis and embolism; Z79.899 Other long term (current) drug therapy
CPT/HCPCS: 71275; 80048 ×2; 84145; 84443; 85025 ×2; 97116; 97139 ×2; G0378 ×2; U0003; U0005; 36415; Q9967

== ENCOUNTER 2021-11-25 15:34 | Inpatient (IN) | payer MEDICARE ==
[~2021-11-25 15:34] MED LIST changes: +Iopamidol 370 76% 100 ML VIAL ONE; -Iopamidol-370 76% 500 ML 1 ML ONE
[2021-11-25] MEDS ORDERED: Ondansetron PF 4 MG/2 ML Vial ONE (16:48)
[2021-11-25] MEDS ORDERED: Morphine 4 MG/ML VIAL ONE (16:48)
[2021-11-25 16:51] LABS: #Lymphocytes 0.6 thou/uL (1.20-3.40); #Monocytes 0.1 thou/uL (0.11-0.59); #Neutrophils 12.7 thou/uL (1.40-6.50); %Basophils 0.2 % (0.0-1.0); %Eosinophils 0.2 % (0.0-10.0); %Lymphocytes 4.2 % (21.0-51.0); %Monocytes 0.9 % (0.0-10.0); %Neutrophils 94.6 % (42.0-75.0); Hemoglobin 8.7 g/dL (12.0-16.0); Mean Corpuscular HGB CONC 32.6 g/dL (32.0-36.0); Mean Corpuscular Hemoglobin 28.5 pg (27.0-31.0); Mean Corpuscular Volume 87.4 fL (78.0-98.0); Mean Platelet Volume 6.5 fL (7.4-10.4); Platelet Count 254 thou/uL (130-400); RBC Distribution Width 15.8 % (11.5-14.5); Red Blood Cell (RBC) Count 3.07 mill/uL (4.20-5.40); White Blood Cell (WBC) Count 13.5 thou/uL (4.8-10.8)
[2021-11-25 17:12] LABS: ALT (SGPT) 29 U/L (8-55); AST (SGOT) 79 U/L (5-34); Albumin 2.5 g/dL (3.4-4.8); Alkaline Phosphatase 629 U/L (40-110); Anion Gap 13 mmol/L (10-20); BUN (Urea Nitrogen) 21 mg/dL (9.8-20.1); Bilirubin, Total 0.7 mg/dL (0.2-1.2); Calc. Creatinine Clearance 0 mL/min (70-130); Carbon Dioxide 22 mmol/L (23-31); Chloride 93 mmol/L (98-107); Globulin 4.1 g/dL (2.4-3.5); Glucose 94 mg/dL (80-115); Lipase 16 U/L (8-78); Potassium 3.1 mmol/L (3.5-5.1); Protein, Total 6.6 g/dL (5.8-8.1); Sodium 125 mmol/L (136-145)
[2021-11-25] MEDS ORDERED: Ondansetron ODT 4 MG TAB SL PRN (19:45)
[2021-11-25] MEDS ORDERED: Acetaminophen 325 MG TAB PO PRN (19:45)
[2021-11-25] MEDS ORDERED: Ondansetron PF 4 MG/2 ML Vial IVP PRN (19:45)
[2021-11-25] MEDS ORDERED: Acetaminophen 650 MG Suppository PR PRN (21:00)
[2021-11-25] MEDS: Sodium Chloride 0.9% 1,000 ML IV SCH (21:12)
[2021-11-25] MEDS ORDERED: Morphine 4 MG/ML VIAL SLOW IVP PRN (22:44)
[2021-11-25] MEDS ORDERED: Electrolyte Replacement Protocol 1 EACH FS SCH (22:45)
[2021-11-25] MEDS ORDERED: cefTRIAXone\\ROCEPHIN 1 GM in Sodium Chloride 0.9% 100 ML IVPB SCH (23:00)
[2021-11-26 00:01] LABS: Magnesium 1.8 mg/dL (1.6-2.6)
[2021-11-26] MEDS: metroNIDAZOLE 500 MG in Premix Bag 1 BAG IVPB SCH ×3 (00:20→15:43)
[2021-11-26] MEDS: Potassium Chloride 20 MEQ TAB PO SCH ×2 (00:20→02:17)
[2021-11-26] MEDS ORDERED: Sodium Chloride 0.9% 500 ML IV SCH ×2 (04:00→05:45)
[2021-11-26] MEDS: Sodium Chloride 0.9% 1,000 ML IV SCH ×2 (04:46→13:26)
[2021-11-26 06:10] LABS: #Lymphocytes 0.4 thou/uL (1.20-3.40); #Monocytes 0.1 thou/uL (0.11-0.59); #Neutrophils 10.9 thou/uL (1.40-6.50); %Eosinophils 0.2 % (0.0-10.0); %Lymphocytes 3.5 % (21.0-51.0); %Monocytes 0.9 % (0.0-10.0); %Neutrophils 95.3 % (42.0-75.0); Hemoglobin 7.7 g/dL (12.0-16.0); Mean Corpuscular HGB CONC 31.1 g/dL (32.0-36.0); Mean Corpuscular Hemoglobin 27.7 pg (27.0-31.0); Mean Corpuscular Volume 89.3 fL (78.0-98.0); Mean Platelet Volume 6.3 fL (7.4-10.4); Platelet Count 196 thou/uL (130-400); RBC Distribution Width 15.7 % (11.5-14.5); Red Blood Cell (RBC) Count 2.76 mill/uL (4.20-5.40); White Blood Cell (WBC) Count 11.5 thou/uL (4.8-10.8)
[2021-11-26 06:28] LABS: Anion Gap 12 mmol/L (10-20); BUN (Urea Nitrogen) 19 mg/dL (9.8-20.1); Calc. Creatinine Clearance 66 mL/min (70-130); Calcium 7.5 mg/dL (7.8-10.44); Carbon Dioxide 20 mmol/L (23-31); Chloride 99 mmol/L (98-107); Glucose 63 mg/dL (80-115); Potassium 4.2 mmol/L (3.5-5.1); Sodium 127 mmol/L (136-145)
[2021-11-26] MEDS ORDERED: Magnesium 2 GM/50 ML 2 GM in Premix Bag 1 BAG IVPB SCH (07:00)
[2021-11-26] MEDS: Apixaban 2.5 MG TAB PO SCH ×2 (08:57→20:29)
[2021-11-26 15:23] LABS: ALT (SGPT) 29 U/L (8-55); AST (SGOT) 81 U/L (5-34); Albumin 2.3 g/dL (3.4-4.8); Alkaline Phosphatase 585 U/L (40-110); Bilirubin, Direct 0.4 mg/dL (0.1-0.3); Bilirubin, Total 0.5 mg/dL (0.2-1.2); Protein, Total 6.2 g/dL (5.8-8.1)
[2021-11-26 15:52] LABS: Free T4 (Free Thyroxine) 0.94 ng/dL (0.70-1.48)
[2021-11-26 15:53] LABS: Thyroid Stimulating Hormone 4.2517 uIU/mL (0.35-4.94)
[2021-11-26 17:57] LABS: Sodium 126 mmol/L (136-145)
[2021-11-26 18:29] LABS: Bacteria/HPF None Seen HPF (None Seen); Bilirubin Negative (Negative); Blood, Urine 1+ (Negative); Clarity Clear (Clear); Glucose, Urine (Dipstick) Normal (Negative); Ketone, Urine 20 mg/dL (Negative); Leukocyte Negative Leu/uL (Negative); Nitrite Negative (Negative); Protein, Urine (Dipstick) 50 mg/dL (Neg-Trace); RBC/HPF 21-50 HPF (0-3); Urobilinogen Normal mg/dL (Less than 2)
[2021-11-26 18:30] LABS: Specific Gravity, Urine 1.046 (1.002-1.036)
[2021-11-26 18:31] LABS: Urine Culture Reflex No No
[2021-11-26] MEDS: ALPRAZolam 0.5 MG TAB PO PRN (20:29)
[2021-11-26] MEDS: Cefdinir 300 MG CAP PO SCH (20:29)
[2021-11-26] MEDS ORDERED: metroNIDAZOLE 500 MG TAB PO SCH (23:00)
[2021-11-26] MEDS ORDERED: LACTINEX 1 TAB PO SCH (23:30)
[2021-11-26] MEDS ORDERED: Pantoprazole 80 MG in Sodium Chloride 0.9% 100 ML IVPB SCH (23:30)
[2021-11-27] MEDS: Melatonin 3 MG TAB PO PRN (00:03)
[2021-11-27 00:07] LABS: SARS-CoV-2 PCR by NAA Not Detected (NotDetected)
[2021-11-27] MEDS: Sodium Chloride 0.9% 1,000 ML IV SCH ×2 (00:12→14:39)
[2021-11-27 00:37] LABS: Hemoglobin 7.8 g/dL (12.0-16.0); Platelet Count 176 thou/uL (130-400)
[2021-11-27 06:17] LABS: ALT (SGPT) 27 U/L (8-55); AST (SGOT) 77 U/L (5-34); Albumin 2.1 g/dL (3.4-4.8); Alkaline Phosphatase 570 U/L (40-110); Anion Gap 14 mmol/L (10-20); BUN (Urea Nitrogen) 20 mg/dL (9.8-20.1); Bilirubin, Total 0.4 mg/dL (0.2-1.2); Calc. Creatinine Clearance 66 mL/min (70-130); Calcium 7.5 mg/dL (7.8-10.44); Carbon Dioxide 16 mmol/L (23-31); Chloride 101 mmol/L (98-107); Globulin 3.4 g/dL (2.4-3.5); Glucose 72 mg/dL (80-115); Iron 43 ug/dL (50-170); Iron Binding Capacity, Total 164 mcg/dL (265-497); Potassium 3.7 mmol/L (3.5-5.1); Protein, Total 5.5 g/dL (5.8-8.1); Sodium 127 mmol/L (136-145)
[2021-11-27 06:18] LABS: Iron 42 ug/dL (50-170); Iron Binding Capacity, Total 161 mcg/dL (265-497)
[2021-11-27 06:30] LABS: Band 5 % (5-11); Hemoglobin 7.3 g/dL (12.0-16.0); Hypochromia SLIGHT = 6-15 cells (100X) (0-5/hpf); MDiff Complete? YES; Mean Corpuscular Hemoglobin 28.8 pg (27.0-31.0); Mean Corpuscular Volume 89.9 fL (78.0-98.0); Mean Platelet Volume 6.7 fL (7.4-10.4); Monocytes 6 % (0-10); Neutrophil 89 % (42-75); Platelet Count 168 thou/uL (130-400); Platelet Morphology Comment Appears Adequate; RBC Distribution Width 15.8 % (11.5-14.5); Red Blood Cell (RBC) Count 2.52 mill/uL (4.20-5.40); White Blood Cell (WBC) Count 10.1 thou/uL (4.8-10.8)
[2021-11-27] MEDS: Apixaban 2.5 MG TAB PO SCH (08:43)
[2021-11-27] MEDS: Cefdinir 300 MG CAP PO SCH (08:43)
[2021-11-27] MEDS ORDERED: metroNIDAZOLE 500 MG TAB PO SCH (09:00)
[2021-11-27] MEDS ORDERED: Pantoprazole 80 MG, Admixture Fee 1 EACH in Sodium Chloride 0.9% 100 ML IVPB SCH (09:30)
[2021-11-27] MEDS ORDERED: Dicyclomine 10 MG CAP PO PRN (14:30)
[2021-11-27] MEDS ORDERED: Azithromycin 250 MG TAB PO SCH (15:15)
[2021-11-27] MEDS: Albumin 25% 25 GM/100 ML BOT IVPB SCH ×2 (15:41→20:03)
[2021-11-27] MEDS: ALPRAZolam 0.5 MG TAB PO PRN (18:07)
[2021-11-28] MEDS: Sodium Chloride 0.9% 1,000 ML IV SCH (04:16)
[2021-11-28 04:54] LABS: Band 12 % (5-11); Hemoglobin 6.5 g/dL (12.0-16.0); Lymphocytes 8 % (21-51); MDiff Complete? YES; Mean Corpuscular HGB CONC 31.9 g/dL (32.0-36.0); Mean Corpuscular Hemoglobin 28.5 pg (27.0-31.0); Mean Corpuscular Volume 89.3 fL (78.0-98.0); Mean Platelet Volume 6.8 fL (7.4-10.4); Monocytes 6 % (0-10); Neutrophil 74 % (42-75); Platelet Count 95 thou/uL (130-400); Platelet Morphology Comment Appears Decreased; RBC Distribution Width 15.9 % (11.5-14.5); Red Blood Cell (RBC) Count 2.27 mill/uL (4.20-5.40)
[2021-11-28 04:56] LABS: Anion Gap 11 mmol/L (10-20); BUN (Urea Nitrogen) 21 mg/dL (9.8-20.1); Calc. Creatinine Clearance 61 mL/min (70-130); Calcium 7.8 mg/dL (7.8-10.44); Carbon Dioxide 17 mmol/L (23-31); Chloride 103 mmol/L (98-107); Glucose 81 mg/dL (80-115); Magnesium 2.4 mg/dL (1.6-2.6); Phosphorus 2.9 mg/dL (2.3-4.7); Potassium 3.2 mmol/L (3.5-5.1); Sodium 128 mmol/L (136-145)
[2021-11-28] MEDS: Levothyroxine Sodium 125 MCG TAB PO SCH (06:17)
[2021-11-28] MEDS ORDERED: Potassium Chloride 40 MEQ in Sodium Chloride 0.9% 250 ML 250 ML IVPB SCH (06:30)
[2021-11-28] MEDS ORDERED: Potassium Chloride 20 MEQ TAB PO SCH (06:30)
[2021-11-28] MEDS: Albumin 25% 25 GM/100 ML BOT IVPB SCH (07:57)
[2021-11-28] MEDS: PARoxetine 20 MG TAB PO SCH (07:57)
[2021-11-28] MEDS ORDERED: Azithromycin 250 MG TAB PO SCH (09:00)
[2021-11-28] MEDS: Azithromycin 200 MG/5 ML Oral Suspension PO SCH (09:09)
[2021-11-28] MEDS: Melatonin 3 MG TAB PO PRN (22:01)
[2021-11-29] MEDS: ALPRAZolam 0.5 MG TAB PO PRN ×2 (00:15→20:32)
[2021-11-29] MEDS: Levothyroxine Sodium 125 MCG TAB PO SCH (05:56)
[2021-11-29 06:29] LABS: Hemoglobin 8.5 g/dL (12.0-16.0); Mean Corpuscular HGB CONC 32.6 g/dL (32.0-36.0); Mean Corpuscular Hemoglobin 29.4 pg (27.0-31.0); Mean Platelet Volume 7.6 fL (7.4-10.4); Platelet Count 74 thou/uL (130-400); RBC Distribution Width 15.2 % (11.5-14.5); Red Blood Cell (RBC) Count 2.88 mill/uL (4.20-5.40); White Blood Cell (WBC) Count 1.5 thou/uL (4.8-10.8)
[2021-11-29 06:30] LABS: Band 16 % (5-11); Hypochromia SLIGHT = 6-15 cells (100X) (0-5/hpf); Lymphocytes 4 % (21-51); MDiff Complete? YES; Neutrophil 80 % (42-75); Platelet Morphology Comment Appears Adequate
[2021-11-29 06:42] LABS: Anion Gap 10 mmol/L (10-20); BUN (Urea Nitrogen) 21 mg/dL (9.8-20.1); Calc. Creatinine Clearance 68 mL/min (70-130); Calcium 8.1 mg/dL (7.8-10.44); Carbon Dioxide 18 mmol/L (23-31); Chloride 107 mmol/L (98-107); Glucose 83 mg/dL (80-115); Magnesium 2.3 mg/dL (1.6-2.6); Phosphorus 2.5 mg/dL (2.3-4.7); Potassium 3.5 mmol/L (3.5-5.1); Sodium 131 mmol/L (136-145)
[2021-11-29] MEDS ORDERED: Potassium Chloride 20 MEQ TAB PO SCH (07:00)
[2021-11-29] MEDS: Iron, Sodium Ferric Gluconate 125 MG in Sodium Chloride 0.9% 100 ML IVPB SCH (08:53)
[2021-11-29] MEDS: PARoxetine 20 MG TAB PO SCH (08:53)
[2021-11-29] MEDS ORDERED: Iron Sucrose Complex 100 MG in Sodium Chloride 0.9% 100 ML IVPB SCH (09:00)
[2021-11-29] MEDS: Azithromycin 200 MG/5 ML Oral Suspension PO SCH (09:37)
[2021-11-29] MEDS: Dronabinol 2.5 MG CAP PO SCH (16:51)
[2021-11-29] MEDS: Albumin 25% 25 GM/100 ML BOT IVPB SCH (20:32)
[2021-11-30] MEDS: Levothyroxine Sodium 125 MCG TAB PO SCH (06:17)
[2021-11-30 06:37] LABS: Mean Corpuscular HGB CONC 32.6 g/dL (32.0-36.0); Mean Corpuscular Hemoglobin 29.2 pg (27.0-31.0); Mean Corpuscular Volume 89.6 fL (78.0-98.0); Mean Platelet Volume 8.1 fL (7.4-10.4); Platelet Count 58 thou/uL (130-400); RBC Distribution Width 15.6 % (11.5-14.5); Red Blood Cell (RBC) Count 2.75 mill/uL (4.20-5.40); White Blood Cell (WBC) Count 1.8 thou/uL (4.8-10.8)
[2021-11-30 06:54] LABS: Anion Gap 13 mmol/L (10-20); BUN (Urea Nitrogen) 20 mg/dL (9.8-20.1); Calc. Creatinine Clearance 70 mL/min (70-130); Calcium 8.3 mg/dL (7.8-10.44); Carbon Dioxide 16 mmol/L (23-31); Chloride 107 mmol/L (98-107); Glucose 79 mg/dL (80-115); Magnesium 2.3 mg/dL (1.6-2.6); Phosphorus 2.3 mg/dL (2.3-4.7); Potassium 3.7 mmol/L (3.5-5.1); Sodium 132 mmol/L (136-145)
[2021-11-30 08:02] LABS: Band 21 % (5-11); Eosinophils 1 % (0-10); Lymphocytes 22 % (21-51); MDiff Complete? YES; Monocytes 8 % (0-10); Neutrophil 48 % (42-75); Platelet Morphology Comment Appears Decreased; Polychromasia SLIGHT = 2-3 cells (100X) (0-2/hpf)
[2021-11-30] MEDS: Dronabinol 2.5 MG CAP PO SCH ×2 (09:47→16:35)
[2021-11-30] MEDS: Azithromycin 200 MG/5 ML Oral Suspension PO SCH (09:47)
[2021-11-30] MEDS: Iron, Sodium Ferric Gluconate 125 MG in Sodium Chloride 0.9% 100 ML IVPB SCH (09:47)
[2021-11-30] MEDS: Thiamine 100 MG TAB PO SCH (09:48)
[2021-11-30] MEDS: PARoxetine 20 MG TAB PO SCH (09:48)
[2021-11-30] MEDS: Albumin 25% 25 GM/100 ML BOT IVPB SCH ×4 (11:08→17:51)
[2021-11-30 12:17] LABS: SARS-CoV-2 NAA Rapid Test Not Detected (NotDetected)
[2021-12-01] MEDS: Levothyroxine Sodium 125 MCG TAB PO SCH (06:19)
[2021-12-01] MEDS: Dronabinol 2.5 MG CAP PO SCH (09:37)
[2021-12-01] MEDS: Azithromycin 200 MG/5 ML Oral Suspension PO SCH (09:37)
[2021-12-01] MEDS: Iron, Sodium Ferric Gluconate 125 MG in Sodium Chloride 0.9% 100 ML IVPB SCH (09:37)
[2021-12-01] MEDS: PARoxetine 20 MG TAB PO SCH (09:38)
[2021-12-01] MEDS: Thiamine 100 MG TAB PO SCH (09:38)
[2021-12-01 09:51] VITALS: BP 107/70; TEMP 97.2
[2021-12-01 11:43] VITALS: BMI 30.6
== END 2021-12-01 15:10 | disposition hospice, home (50) | DRG 372 ==
LOC: ERS 15:34 → MSONC 19:24
PROVIDERS: ADMIT Student in an Organized Health Care Education/Training Program; ATTEND Family Medicine
DX: A04.5 Campylobacter enteritis (principal); C56.9 Malignant neoplasm of unspecified ovary; E87.1 Hypo-osmolality and hyponatremia; C79.51 Secondary malignant neoplasm of bone; I82.501 Chronic embolism and thrombosis of unspecified deep veins of right lower extremity; R18.8 Other ascites; D62 Acute posthemorrhagic anemia; Z20.822 Contact with and (suspected) exposure to COVID-19; I10 Essential (primary) hypertension; F32.A Depression, unspecified; E87.6 Hypokalemia; D63.0 Anemia in neoplastic disease; E03.9 Hypothyroidism, unspecified; E86.0 Dehydration; F41.9 Anxiety disorder, unspecified; D70.2 Other drug-induced agranulocytosis; T45.1X5A Adverse effect of antineoplastic and immunosuppressive drugs, initial encounter; Z88.0 Allergy status to penicillin; Z90.710 Acquired absence of both cervix and uterus; Z98.51 Tubal ligation status; Z88.5 Allergy status to narcotic agent; Z91.040 Latex allergy status; Z79.01 Long term (current) use of anticoagulants; Z79.890 Hormone replacement therapy; Z79.51 Long term (current) use of inhaled steroids; Z79.899 Other long term (current) drug therapy
CPT/HCPCS: 0240U; 36415; 36430; 71045; 74177; 80048; 80053; 80076; 81001; 82607; 82728; 82746; 83540; 83550; 83690; 83735; 84100; 84134; 84439; 84443; 85014; 85018; 85025; 85049; 86850; 86900; 86901; 87045; 87046; 87324; 87427; 87449; 93005; 93970; 96374; 96375; C9113; J0696; J1642; J2270; J2405; J2916; J3475; J3480; J3490; J7030; J7050; P9016; P9047; Q0167; Q9967; U0003; U0005